=== PATIENT | male | born 1950 | race Caucasian/White ===

== ENCOUNTER 2018-06-07 06:50 | Observation (INO) | payer MEDICARE, OTHER ==
[2018-06-07] VITALS (7 sets, daily range): BP systolic 119–126; BP diastolic 61–71
[~2018-06-07] VITALS: Ht 175.3 cm; Wt 91.7 kg
[~2018-06-07 06:50] MED LIST: CELEBREX100 MG PO; COLCRYS0.6 MG PO; ULORIC80 MG PO
[2018-06-07] MEDS ORDERED: KETOROLAC TROMETHAMINE 30 MG/ML VIAL IV STA (06:53)
[2018-06-07 07:45] LABS: BASOPHILS # (AUTO) 0.1 (0.0-0.1); BASOPHILS % 0.5 % (0.0-1.0); EOSINOPHILS # (AUTO) 0.3 (0.0-0.4); EOSINOPHILS % 2.4 % (0.0-6.0); HEMATOCRIT 38.4 % (38.2-49.6); HEMOGLOBIN 12.6 g/dL (14.0-18.0); LYMPHOCYTES # (AUTO) 1.2 (1.0-3.2); LYMPHOCYTES % 11.7 % (18.0-39.1); MEAN CORPUSCULAR HEMOGLOBIN 33.9 pg (28-32); MEAN CORPUSCULAR HGB CONC 32.8 g/dL (31-35); MEAN CORPUSCULAR VOLUME 103.2 fL (81-99); MONOCYTES # (AUTO) 1.2 (0.2-0.8); MONOCYTES % 11.2 % (4.4-11.3); NEUTROPHILS # (AUTO) 7.6 (2.1-6.9); NEUTROPHILS % 73.8 % (38.7-80.0); PLATELET COUNT 195 x10e3/uL (140-360); RED BLOOD COUNT 3.72 x10e6/uL (4.3-5.7); RED CELL DISTRIBUTION WIDTH 14.1 % (11.7-14.4)
[2018-06-07 07:54] LABS: BILIRUBIN,URINE NEGATIVE (NEGATIVE); CLARITY,URINE CLEAR (CLEAR); COLOR,URINE YELLOW (YELLOW); KETONES,URINE NEGATIVE (NEGATIVE); LEUKOCYTE ESTERASE ,URINE NEGATIVE (NEGATIVE); NITRITE,URINE NEGATIVE (NEGATIVE); PROTEIN,URINE DIPSTICK NEGATIVE (NEGATIVE); URINE UROBILINOGEN 0.2 mg/dL (0.2 - 1)
[2018-06-07 08:00] LABS: RBC,URINE 0-5 /HPF (0-5)
--- NOTE | 2018-06-07 08:06 | Diagnostic Imaging Report ---
EXAM: CT Abdomen and Pelvis WITHOUT contrast INDICATION: Pain COMPARISON: None. TECHNIQUE: Abdomen and Pelvis was scanned utilizing a multidetector helical scanner without the use of IV contrast. Coronal and sagittal reformations were obtained. IV CONTRAST: None COMPLICATIONS: None RADIATION DOSE: Total DLP: 429 mGy*cm Estimated effective dose: (DLP x 0.015 x size factor) mSv CTDIvol has been reviewed. It is below the limits set by the Radiation Protocol Committee (RPC). Appropriate CT dose reduction techniques were utilized. FINDINGS: Abdomen: Lung Bases: Mild atelectasis. Solid Organs: Decreased attenuation of liver suggest steatosis. Nonenhanced images of the adrenals, spleen, and pancreas grossly unremarkable. Numerous bilateral nonobstructing renal calculi, largest right 5 mm largest left 7 mm. There is a 6 mm proximal right ureteral calculus with mild hydronephrosis. Upper GI Tract: No small bowel obstructive changes. Vascularity: Mild aortic vascular calcifications. No aneurysm. Lymph Nodes: Haziness central mesentery with scattered small mesenteric lymph nodes, increased in number, but not by size. Other: None. Pelvis: Bladder: 1 to 2 mm calcification within the dependent portion of the urinary bladder just to the right of midline. Other: None. Colon: No acute colonic findings. Bones: L5 pars defects with grade 1 anterolisthesis L5 on S1. Moderate degenerative changes otherwise noted. IMPRESSION: 1. 6 mm proximal right ureteral calculus with mild right hydronephrosis. Several other bilateral nonobstructing renal calculi present as well as 1 to 2 mm calcification within the urinary bladder consistent with recently passed stone. 2. Haziness central mesentery with scattered small lymph nodes. While findings are commonly seen in the setting of mesenteric adenitis, lymphoma can have similar appearance. [address] abdomen follow-up recommended. Signed by: Dr. Tony Valle MD on 06/07/2018 8:03 AM
[2018-06-07 08:07] LABS: ALBUMIN 3.4 g/dL (3.5-5.0); ALBUMIN/GLOBULIN RATIO 1.1 (0.8-2.0); ANION GAP 13.9 mmol/L (8-16); CALCIUM 8.7 mg/dL (8.4-10.2); CREATININE, SERUM 1.69 mg/dL (0.72-1.25); POTASSIUM 3.9 mmol/L (3.5-5.1)
[2018-06-07] MEDS ORDERED: SODIUM CHLORIDE 0.9% 1000ML 1,000 ML ONE (08:43)
[2018-06-07] MEDS ORDERED: SODIUM CHLORIDE 0.9% 1000ML 1,000 ML IV ONE (08:45)
[2018-06-07] MEDS ORDERED: HYDROMORPHONE 1MG/1ML INJ IV PRN (09:15)
[2018-06-07] MEDS ORDERED: ONDANSETRON HCL INJ 2 MG/ML VIAL IV PRN (09:15)
[2018-06-07] MEDS: SODIUM CHLORIDE 0.9% 1000ML 1,000 ML IV SCH ×2 (09:32→16:21)
[2018-06-07] MEDS: CEFTRIAXONE SOD 1 GM VIAL IV SCH (09:36)
[2018-06-07] MEDS ORDERED: INDOMETHACIN50 MG (10:52)
[2018-06-07] MEDS ORDERED: PREDNISONE10 MG PO (10:52)
--- NOTE | 2018-06-07 12:27 | Consultation ---
DATE OF CONSULTATION: June 07, 2018 UROLOGY CONSULTATION CHIEF UROLOGIC COMPLAINT/REASON FOR CONSULTATION: Kidney stones. HISTORY OF PRESENT ILLNESS: Mr. Kelly is a very pleasant 67-year-old male who was in his normal state of health until acute onset of sharp, severe 10/10 right-sided flank pain. He denied fevers. No chills. Denied nausea. No vomiting. PAST MEDICAL HISTORY: Notable only for severe gout. MEDICATIONS: Please see MAR. ALLERGIES: NKDA. SOCIAL HISTORY: Denied smoking or drinking. FAMILY HISTORY: Denied urologic stones or malignancies. REVIEW OF SYSTEMS: Noncontributory to the problems and as mentioned above for 12-point review of systems. PHYSICAL EXAMINATION GENERAL: A middle-aged male in no acute distress. VITALS: Temperature 96.8, pulse 60, respirations 14, blood pressure 119/68. HEENT: The sclerae are anicteric. NECK: Supple. BACK: With right-sided costovertebral angle tenderness. ABDOMEN: Soft. It is nontender. It is nondistended. No palpable mass. No palpable hernias. No palpable inguinal lymphadenopathy. : Normal male external genitalia. EXTREMITIES: No edema in upper or lower extremities. PSYCH: Alert. Mood appropriate. SKIN: Intact. Normal color. LABORATORY DATA: CT scan revealing bilateral kidney stones, largest on the right, 5 mm and largest stone on the left 7 mm. A 6 x 6 mm proximal right ureteral calculus with hydronephrosis. Urinalysis with 0-5 reds and positive blood. Sodium 141, potassium 3.9, chloride 106, bicarb 25, BUN 25, creatinine 1.69, glucose 108. Hemoglobin 12.9, hematocrit 38.4 and platelet count 195,000, white cell count 10,300. IMPRESSION 1. Bilateral kidney stones. 2. Right ureteral stone. 3. Right-sided hydronephrosis. 4. Right renal colic. 5. Microscopic hematuria. 6. Anemia. 7. Acute renal failure. PLAN: I had a long discussion with the patient about alternatives, risks and benefits. Will place a stent tomorrow. Patient explicitly understands that the stent is a temporary indwelling device and must be removed. Failure to do so could lead to encrustation, infection, inflammation, actual loss of the kidney, and . Job#: [id number] RI cc:MD BROOK JONES DO
[2018-06-07] MEDS ORDERED: PREDNISONE 10 MG TAB PO PRN (12:45)
--- NOTE | 2018-06-07 14:21 | History and Physical ---
CHIEF COMPLAINT: Right flank pain. HISTORY OF PRESENT ILLNESS: This is a 67-year-old white male presents to [facility] emergency room with sudden onset of right flank pain. The patient states he has no history of kidney stone. However, in the emergency room the patient underwent a CT of the abdomen and pelvis without contrast that did reveal a 6 mm proximal right ureteral calculus with mild right hydronephrosis. The CT of the abdomen and pelvis also revealed several other bilateral nonobstructing renal calculi. The patient was found to have a white blood cell count of 10,300 with 73% segmented neutrophils. Also, on admission the patient was found to have a BUN and creatinine of 25 and 1.69 respectively. The patient states that recently he started intravenous Cristexa because of his severe debilitating gout. The patient also states that he takes indomethacin 50 mg once daily on a regular basis for his arthritic gouty pain. REVIEW OF SYSTEMS GENERAL: Weight has been stable. No chills. HEENT: No headache. No vision changes. CARDIOVASCULAR: No chest pain or shortness of breath. GI: Complains of right flank pain, which began early this morning. It is associated with some slight nausea, but no vomiting. No diarrhea. : Does complain of painful urination, but no hematuria. The patient states the pain radiates from his right flank to right scrotal area. NEUROMUSCULAR: The patient complains of intense right flank pain as previously stated. PAST MEDICAL HISTORY: Severe gout. PAST SURGICAL HISTORY 1. Left shoulder surgery twice. 2. Bilateral bunionectomy. 3. Right total knee replacement. FAMILY HISTORY: No family history of gout or kidney stones. ALLERGIES: NO KNOWN DRUG ALLERGIES. HOME MEDICATIONS 1. Colchicine 0.6 mg once daily. 2. Uloric 80 mg daily. 3. Indomethacin 50 mg daily as needed for arthritic pain. 4. Prednisone 10 mg once daily as needed for arthritic pain. PHYSICAL EXAMINATION GENERAL: He is awake, alert and oriented. Very pleasant and cooperative with exam. He looks younger than his stated age. His is at bedside. VITALS: Height is 5 feet 9 inches, weight is 194 pounds. BMI is 28. Blood pressure 119/68, pulse 60, respiratory rate 14, oxygen saturation is 97%, temperature is 96.8. INTEGUMENT: Skin is warm and dry. No pallor of conjunctivae appreciated. HEENT: Anicteric. Moist mucous membranes. NECK: Supple. CARDIOVASCULAR: Distant heart sounds. Regular rate and rhythm. LUNGS: No rales. No rhonchi or wheezing. ABDOMEN: Soft. He does have exquisite right flank tenderness. EXTREMITIES: The patient has significant arthritic deformities of his right metacarpophalangeal joint consistent with gouty arthritis. NEUROLOGIC: Intact. No gross deficits. DIAGNOSES 1. Right nonobstructing ureteral stone with mild hydronephrosis. 2. Acute renal failure. 3. Severe gout. PLAN 1. Will stop all NSAIDs. 2. Gentle intravenous fluids. 3. Follow renal function. 4. Pain control. 5. Consult urology. I spent 40 minutes in the care of this patient. Job#: [id number] ANGEL
--- NOTE | 2018-06-07 14:22 | Discharge Summary ---
KRISTYN MATTHEWS, LENGTH 0:2 KAROL DUVALL MD Job#: [id number] ANGEL
[2018-06-07] MEDS ORDERED: LIDOCAINE HCL 2% LOCAL INJ 5 ML SDV VIAL INJ ONE (18:36)
[2018-06-07] MEDS ORDERED: SEVOFLURANE INHAL SOLN 250 ML PEN BTL ONE (18:36)
[2018-06-07] MEDS ORDERED: ONDANSETRON HCL INJ 2 MG/ML VIAL ONE (18:36)
[2018-06-07] MEDS ORDERED: PROPOFOL IV EMULSION 10 MG/ML 20 ML VIAL ONE (18:36)
[2018-06-07] MEDS ORDERED: DEXAMETHASONE SOD PHOS INJ 4 MG/ML VIAL ONE (18:36)
[2018-06-08] VITALS: BP 134/64
[2018-06-08] MEDS: SODIUM CHLORIDE 0.9% 1000ML 1,000 ML IV SCH (00:20)
[2018-06-08 04:00] VITALS: BP 133/76
[2018-06-08 04:59] LABS: BASOPHILS % 0.3 % (0.0-1.0); EOSINOPHILS # (AUTO) 0.2 (0.0-0.4); EOSINOPHILS % 2.2 % (0.0-6.0); HEMATOCRIT 35.3 % (38.2-49.6); HEMOGLOBIN 11.5 g/dL (14.0-18.0); LYMPHOCYTES # (AUTO) 1.1 (1.0-3.2); LYMPHOCYTES % 14.8 % (18.0-39.1); MEAN CORPUSCULAR HEMOGLOBIN 33.7 pg (28-32); MEAN CORPUSCULAR HGB CONC 32.6 g/dL (31-35); MEAN CORPUSCULAR VOLUME 103.5 fL (81-99); MONOCYTES % 12.9 % (4.4-11.3); NEUTROPHILS # (AUTO) 5.3 (2.1-6.9); NEUTROPHILS % 69.3 % (38.7-80.0); PLATELET COUNT 172 x10e3/uL (140-360); RED BLOOD COUNT 3.41 x10e6/uL (4.3-5.7); RED CELL DISTRIBUTION WIDTH 14.1 % (11.7-14.4)
[2018-06-08 05:14] LABS: ANION GAP 10.4 mmol/L (8-16); BLOOD UREA NITROGEN 21 mg/dL (7-26); BUN/CREATININE RATIO 21 (6-25); CALCIUM 8.2 mg/dL (8.4-10.2); CARBON DIOXIDE 24 mmol/L (22-29); CHLORIDE 111 mmol/L (98-107); CREATININE, SERUM 0.98 mg/dL (0.72-1.25); EST GLOMERULAR FILTRATION RATE > 60 ML/MIN (60-); GLUCOSE 102 mg/dL (74-118); POTASSIUM 4.4 mmol/L (3.5-5.1); SODIUM 141 mmol/L (136-145)
[2018-06-08] MEDS ORDERED: IOPAMIDOL 300MG/ML 50ML INFUS..BTL IV ONE (06:48)
--- NOTE | 2018-06-08 08:15 | Operative Report ---
DATE OF PROCEDURE: June 08, 2018 PREOPERATIVE DIAGNOSES 1. Right hydronephrosis. 2. Right ureteral calculus. 3. Microscopic hematuria. POSTOPERATIVE DIAGNOSES 1. Right hydronephrosis. 2. Right ureteral calculus. 3. Microscopic hematuria. 4. Bladder stone. PROCEDURES 1. Cystourethroscopy with left ureteral catheterization (entire separate procedure for diagnosis of microscopic hematuria). 2. Cystourethroscopy with placement for right indwelling stent (entire separate procedure for right hydronephrosis). 3. Cystourethroscopy with extraction of bladder stone. 4. Supervision of fluoroscopy for stent insertion portion. 5. Interpretation of retrograde pyelography for microscopic hematuria. ANESTHESIA: General. ESTIMATED BLOOD LOSS: Minimal. COMPLICATIONS: None. INDICATIONS: Mr. Bernstein is a very pleasant 67-year-old male, admitted to the hospital with urinary tract infection, as well as acute renal failure and hydronephrosis for the blocked right kidney stone. He and I had a long discussion about alternatives, risks, and benefits including doing nothing. The fact that stents are temporary indwelling device that must be removed and failure to do so could lead to encrustation, infection, inflammation, actual loss of kidney or even . He elected to proceed. PROCEDURE IN DETAIL: After informed consent was obtained, the patient was taken to the operating suite. He was placed on the operating table. Having under general anesthetic, he was placed in dorsal lithotomy position, and sterilely prepped and draped for cystoscopy. A 22.5-Congolese cystoscope was inserted per urethra. A normal urethra was noted. There was trilobar prostatic hypertrophy. Panendoscopy of the bladder revealed [id number] degree trabeculation. There were multiple stones in the floor of the bladder. These were extracted with graspers. Bilateral retrograde pyelogram was performed revealing tortuous ureters. On the right side, there was a proximal ureteral catheter with multiple stones in the kidney. On the left side, there were multiple kidney stones. At this time, a ureteral stent was deployed with a coil in the UPJ and a coil in the bladder on the right. Patient's bladder was drained. He was awakened from anesthesia and transported to the recovery room in excellent condition. SUPERVISION OF FLUOROSCOPY, INTERPRETATION OF RETROGRADE PYELOGRAPHY: I was present throughout the entire procedure and supervised fluoroscopy as there was no radiologist present at any time during the procedure. Attention was turned toward the left and right ureteral orifice, which were catheterized with a 5-Congolese open-ended catheter. A retrograde pyelogram was performed of the left side revealed a 6 x 6-mm proximal ureteral calculus. Multiple kidney stones on the right lower pole, largest approximately 7 and 8 mm. On the left side, multiple kidney stones with the largest being approximately 6 x 6 mm. Job#: [id number] CQ cc:GIOVANNY HINOJOSA DO
[2018-06-08] MEDS ORDERED: COLCHICINE 0.6 MG TAB PO SCH (09:00)
[2018-06-08] MEDS: CEFTRIAXONE SOD 1 GM VIAL IV SCH (09:03)
[2018-06-08 11:29] VITALS: BP 121/60
[2018-06-08] MEDS ORDERED: KETOROLAC TROMETHAMINE 30 MG/ML VIAL IV PRN (14:15)
[2018-06-08] MEDS ORDERED: FENTANYL CITRATE/PF 100MCG/2 ML INJ ONE (14:58)
[2018-06-08] MEDS ORDERED: MIDAZOLAM HCL 2 MG/2 ML VIAL ONE (14:58)
[2018-06-08 15:36] VITALS: BP 136/65
[2018-06-16] MEDS ORDERED: LEVAQUIN500 MG PO (10:02)
[2018-06-16] MEDS ORDERED: TYLENOL WITH C1 EACH PO (10:04)
== END 2018-06-08 16:26 | disposition home or self-care (01) ==
LOC: ER 06:50 → ERHOLD 09:29 → IMCU 10:21
DX: N13.2 Hydronephrosis with renal and ureteral calculous obstruction (principal); N17.9 Acute kidney failure, unspecified; N21.0 Calculus in bladder; M10.9 Gout, unspecified; Z96.651 Presence of right artificial knee joint; M10.041 Idiopathic gout, right hand; R31.29 Other microscopic hematuria; D64.9 Anemia, unspecified
CPT/HCPCS: 36415 ×2; 52310; 52332; 74176; 74420; 80048; 80053; 81001; 85025 ×2; 88300; 99284; C1758; C1874; G0378 ×2; J0696 ×2; J1100; J1170; J1885 ×2; J2001; J2250; J2405; J7030 ×2; Q9967

== ENCOUNTER → 2018-06-17 | Day surgery (SDC) | payer MEDICARE, OTHER ==
[2018-06-16 12:53] LABS: BASOPHILS % 0.5 % (0.0-1.0); EOSINOPHILS # (AUTO) 0.3 (0.0-0.4); EOSINOPHILS % 3.1 % (0.0-6.0); HEMATOCRIT 38.9 % (38.2-49.6); LYMPHOCYTES # (AUTO) 1.4 (1.0-3.2); LYMPHOCYTES % 16.6 % (18.0-39.1); MEAN CORPUSCULAR HEMOGLOBIN 33.9 pg (28-32); MEAN CORPUSCULAR HGB CONC 33.4 g/dL (31-35); MEAN CORPUSCULAR VOLUME 101.6 fL (81-99); MONOCYTES # (AUTO) 1.2 (0.2-0.8); MONOCYTES % 14.1 % (4.4-11.3); NEUTROPHILS # (AUTO) 5.4 (2.1-6.9); NEUTROPHILS % 65.3 % (38.7-80.0); PLATELET COUNT 278 x10e3/uL (140-360); RED BLOOD COUNT 3.83 x10e6/uL (4.3-5.7); RED CELL DISTRIBUTION WIDTH 13.1 % (11.7-14.4)
--- NOTE | 2018-06-16 13:06 | Diagnostic Imaging Report ---
EXAMINATION: CHEST 2 VIEWS INDICATION: Pre-op COMPARISON: None FINDINGS: TUBES and LINES: None. LUNGS: Lungs are well inflated. Lungs are clear. There is no evidence of pneumonia or pulmonary edema. PLEURA: No pleural effusion or pneumothorax. HEART AND MEDIASTINUM: The cardiomediastinal silhouette is unremarkable. There are atherosclerotic calcifications at the aortic arch. BONES AND SOFT TISSUES: No acute osseous lesion. Soft tissues are unremarkable. UPPER ABDOMEN: No free air under the diaphragm. IMPRESSION: No acute radiographic abnormality. Signed by: Dr. Sp Marti MD on 06/16/2018 1:02 PM
[~2018-06-17] MED LIST changes: +DEXAMETHASONE SOD PHOS INJ 4 MG/ML VIAL ONE; +FENTANYL CITRATE/PF 100MCG/2 ML INJ ONE; +GENTAMICIN 120MG/NS 100ML 100 ML ONE; +INDOMETHACIN50 MG; +IOPAMIDOL 300MG/ML 50ML INFUS..BTL IV ONE; +LEVAQUIN500 MG PO; +LIDOCAINE HCL 2% LOCAL INJ 5 ML SDV VIAL INJ ONE; +MIDAZOLAM HCL 2 MG/2 ML VIAL ONE; +ONDANSETRON HCL INJ 2 MG/ML VIAL ONE; +PREDNISONE10 MG PO; +PROPOFOL IV EMULSION 10 MG/ML 20 ML VIAL ONE; +SEVOFLURANE INHAL SOLN 250 ML PEN BTL ONE; +TYLENOL WITH C1 EACH PO
--- NOTE | 2018-06-17 12:48 | Diagnostic Imaging Report ---
Exam: Abdominal film Clinical History: Preop Comparison: CT abdomen and pelvis without contrast 06/07/2018 DISCUSSION: Interval placement of a right internal ureteral stent. The proximal locking loop projects over the expected region of the renal pelvis. The distal locking loop projects over the expected region of the urinary bladder. No calcification is identified along the course of the ureteral stent to correspond to the ureteral calculus seen on 06/07/2018. Multiple bilateral calculi are again noted projecting over the renal shadows, grossly unchanged. Bowel gas pattern is nonobstructive. Regional skeletal structures are intact. IMPRESSION: Interval placement of an appropriately positioned right internal ureteral stent. Bilateral nephrolithiasis. Signed by: Dr. Dev Lopez M.D. on 06/17/2018 12:44 PM
[2018-06-17 14:55] VITALS: BP 156/80
--- NOTE | 2018-06-19 07:57 | Operative Report ---
DATE OF PROCEDURE: June 17, 2018 PREOPERATIVE DIAGNOSES 1. Right ureteral calculus. 2. Right ureteral stent. POSTOPERATIVE DIAGNOSES 1. Right ureteral calculus. 2. Right ureteral stent. PROCEDURES 1. Cystourethroscopy with right ureteral stone manipulation (entirely separate procedure for the right ureteral stone). 2. Staged right-sided shock wave lithotripsy (entirely separate procedure in a staged fashion to rid the patient of right-sided stones. 3. Cystourethroscopy with removal of right indwelling stent (entirely separate procedure for the diagnosis of right ureteral stone). 4. Supervision of fluoroscopy. 5. Interpretation of retrograde pyelography. ANESTHESIA: General. ESTIMATED BLOOD LOSS: Minimal. COMPLICATIONS: None. INDICATIONS: Mr. Kelly is a very pleasant 67-year-old male with a history of right ureteral calculi and stent placement. He and I had a long discussion regarding the alternatives, the risks and benefits including doing nothing, shock wave lithotripsy, ureteroscopy, percutaneous surgery, open surgery. He voiced understanding of the options, the alternatives, the risks and benefits, and elected to proceed. PROCEDURE IN DETAIL: After informed consent was obtained, the patient was taken to the operative suite and placed supine on the operating table and underwent general anesthesia by the anesthesia services. He was placed in dorsal lithotomy position and sterilely prepped and draped in a standard fashion for cystoscopy. A 22.5-Syriac cystoscope was inserted per urethra. A normal urethra was noted. Panendoscopy of the bladder was done, excluding stone. The stent was grasped and guidewire was inserted through the stent. Retrograde pyelogram was performed. The stone was manipulated from the proximal ureter into the renal pelvis. The stone was then localized in the X, Y and Z planes. A total of 3000 shocks were delivered to the stone at a maximum power of 6. The patient tolerated the procedure well and was transported to the recovery room in excellent condition. No untoward effects noted. The safety wire was removed. The bladder was drained. SUPERVISION OF FLUOROSCOPY AND INTERPRETATION OF RETROGRADE PYELOGRAPHY: I was present throughout the entire procedure and I supervised the use of fluoroscopy as no radiologist present at any time during this procedure. Attention was turned towards the right ureteral orifice. It was catheterized and retrograde pyelogram was performed. A previous ureteral calculus proximally had been manipulated in the renal pelvis. Postoperative views did show interval removal of renal calculi as well as ureteral stent. Job#: [id number] GE cc:GIOVANNY HINOJOSA DO
== END | disposition home or self-care (01) ==
LOC: OR 10:30
PROVIDERS: ATTEND Urology
DX: N20.1 Calculus of ureter (principal); Z46.6 Encounter for fitting and adjustment of urinary device; N13.30 Unspecified hydronephrosis; N39.0 Urinary tract infection, site not specified; F41.9 Anxiety disorder, unspecified; Z01.810 Encounter for preprocedural cardiovascular examination; Z01.812 Encounter for preprocedural laboratory examination; Z01.818 Encounter for other preprocedural examination; Z96.651 Presence of right artificial knee joint; Z96.619 Presence of unspecified artificial shoulder joint
CPT/HCPCS: 36415; 50590; 71046; 74018; 85025; 93005; J1100; J1580; J2001; J2250; J2405; Q9967

== ENCOUNTER 2018-11-06 08:58 | Emergency (ER) | payer MEDICARE, OTHER ==
[~2018-11-06] VITALS: Ht 175.3 cm; Wt 91.6 kg
[~2018-11-06 08:58] MED LIST changes: -DEXAMETHASONE SOD PHOS INJ 4 MG/ML VIAL ONE; -FENTANYL CITRATE/PF 100MCG/2 ML INJ ONE; -GENTAMICIN 120MG/NS 100ML 100 ML ONE; -IOPAMIDOL 300MG/ML 50ML INFUS..BTL IV ONE; -LIDOCAINE HCL 2% LOCAL INJ 5 ML SDV VIAL INJ ONE; -MIDAZOLAM HCL 2 MG/2 ML VIAL ONE; -ONDANSETRON HCL INJ 2 MG/ML VIAL ONE; -PROPOFOL IV EMULSION 10 MG/ML 20 ML VIAL ONE; -SEVOFLURANE INHAL SOLN 250 ML PEN BTL ONE
--- OUTSIDE RECORDS SUMMARY | 2018-11-06 09:02 | XMS REPORT | Continuity of Care Document ---
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 Problem 09/25/2018 Micky Horta Encounter for long-term drug use Active Diagnosis 02/25/2018 Micky Horta High risk medication use Active Problem 09/25/2018 Micky Horta Medications Medication Details Route Status Patient Instructions Ordering Provider Order Date Source Colchicine 1 tablet Orally Active 0.6 MG Orally Once a day Horta 09/23/2018 Micky Horta Indomethacin 1 capsule with food or milk Orally Active 25 MG Orally every morning Rashid 09/22/2018 Micky Horta PredniSONE 2-4 tablets as needed Orally Active 5 MG Orally Once a day Horta 08/24/2018 Micky Horta Indomethacin 1 capsule with food or milk Orally Active 25 MG Orally every morning Horta 07/19/2018 Micky Horta Meloxicam 1 tablet Orally Active 7.5 MG Orally bid with food Horta 07/16/2018 Micky Horta Meloxicam 1 tablet Orally Active 7.5 MG Orally bid with food Horta 06/22/2018 Micky Horta Colchicine 1 tablet Orally Active 0.6 MG Orally Once a day Horta 06/22/2018 Micky Horta PredniSONE 2-4 tablets as needed Orally Active 5 MG Orally Once a day Horta 05/29/2018 Micky Horta PredniSONE 2-4 tablets as needed Orally Active 5 MG Orally Once a day Rashid 05/29/2018 Micky Horta PredniSONE 1 tablet Orally Active 10 MG Orally as needed Rashid 05/28/2018 Micky Horta Colchicine 1 tablet Orally Active 0.6 MG Orally Once a day Rashid 05/27/2018 Micky Horta PredniSONE 2 tablets for flares Orally Active 10 MG Orally as needed Horta 05/13/2018 Micky Horta Krystexxa 1 ml Intravenous Active 8 MG/ML Intravenous every 2 weeks Horta 03/23/2018 Micky Horta Colchicine 1 tablet Orally Active 0.6 MG Orally Once a day Rashid 03/23/2018 Micky Horta Indomethacin 1 capsule with food or milk Orally Active 50 MG Orally every morning Rashid 03/23/2018 Micky Horta Uloric 1 tablet Orally Active 80 MG Orally Once a day [place] 02/17/2018 Micky Horta Celecoxib (Celebrex*) 100 Mg Capsule Daily Active [facility] Colchicine (Colcrys) 0.6 Mg Tablet Daily Active [facility] Febuxostat (Uloric) 80 Mg Tablet Daily Active [facility] Indomethacin 50 Mg Capsule Daily Active [facility] Prednisone 10 Mg Tab As Needed Active [facility] Acetaminophen 1 capsule Orally Active 650 MG Orally once a day Rashid Micky Alonsoer Uloric 1 tablet Orally Active 80 MG Orally Once a day Rashid Micky Horta PredniSONE 2 tablets for 4 daysm then 1 tablet as needed until flare resolves Orally Active 10 MG Orally as needed Rashid Micky Horta Multivitamin Men as directed Orally Active - Orally Rashid Micky Horta Indomethacin 1 capsule with food or milk Orally Active 25 MG Orally every morning Rashid Micky Horta Colchicine 1 tablet Orally Active 0.6 MG Orally Once a day [place] Micky Horta Krystexxa 1 ml Intravenous Active 8 MG/ML Intravenous every 2 weeks [place] Micky Alonsoer Indomethacin 1 capsule with food or milk Orally Active 50 MG Orally every morning [place] Micky Horta Allergies, Adverse Reactions, Alerts Substance Category Reaction Severity Reaction type Status Date Reported Comments Source Colchicine Adverse Reaction stomach upset Adverse Reaction Active 06/24/2018 Micky Horta Immunizations Immunization Date Given Site Status Last Updated Comments Source Results Order Name Results Value Reference Range Date Interpretation Comments Source Automated blood basophil count (count/volume) Automated blood basophil count (count/volume) 0.0 0.0 - 0.1 06/08/2018 [facility] Automated blood basophil count as percentage of total leukocytes Automated blood basophil count as percentage of total leukocytes 0.3 0.0 - 1.0 06/08/2018 [facility] Automated blood eosinophil count Automated blood eosinophil count 0.2 0.0 - 0.4 06/08/2018 [facility] Automated blood eosinophil count as percentage of total leukocytes Automated blood eosinophil count as percentage of total leukocytes 2.2 0.0 - 6.0 06/08/2018 [facility] Automated blood hematocrit (volume fraction) Automated blood hematocrit (volume fraction) 35.3 38.2 - 49.6 06/08/2018 [facility] Automated blood lymphocyte count as percentage ot total leukocytes Automated blood lymphocyte count as percentage ot total leukocytes 14.8 18.0 - 39.1 06/08/2018 [facility] Automated blood monocyte count as percentage of total leukocytes Automated blood monocyte count as percentage of total leukocytes 12.9 4.4 - 11.3 06/08/2018 [facility] Automated blood neutrophil count Automated blood neutrophil count 5.3 2.1 - 6.9 06/08/2018 [facility] Automated blood platelet count (count/volume) Automated blood platelet count (count/volume) 172 140 - 360 06/08/2018 [facility] Automated blood segmented neutrophil count as percentage of total leukocytes Automated blood segmented neutrophil count as percentage of total leukocytes 69.3 38.7 - 80.0 06/08/2018 [facility] Automated erythrocyte mean corpuscular hemoglobin (mass per erythrocyte) Automated erythrocyte mean corpuscular hemoglobin (mass per erythrocyte) 33.7 28 - 32 06/08/2018 [facility] Automated erythrocyte mean corpuscular hemoglobin concentration measurement (mass/volume) Automated erythrocyte mean corpuscular hemoglobin concentration measurement (mass/volume) 32.6 31 - 35 06/08/2018 [facility] Automated erythrocyte mean corpuscular volume Automated erythrocyte mean corpuscular volume 103.5 81 - 99 06/08/2018 [facility] Blood erythrocytes automated count (number/volume) Blood erythrocytes automated count (number/volume) 3.41 4.3 - 5.7 06/08/2018 [facility] Blood hemoglobin measurement (moles/volume) Blood hemoglobin measurement (moles/volume) 11.5 14.0 - 18.0 06/08/2018 [facility] Blood leukocytes automated count (number/volume) Blood leukocytes automated count (number/volume) 7.69 4.8 - 10.8 06/08/2018 [facility] Blood lymphocytes count (number/volume) Blood lymphocytes count (number/volume) 1.1 1.0 - 3.2 06/08/2018 [facility] Blood monocytes automated count (number/volume) Blood monocytes automated count (number/volume) 1.0 0.2 - 0.8 06/08/2018 [facility] Estimated glomerular filtration rate (GFR) determination Estimated glomerular filtration rate (GFR) determination null 60 06/08/2018 [facility] Glucose measurement Glucose measurement 102 74 - 118 06/08/2018 [facility] Serum or plasma anion gap Serum or plasma anion gap 10.4 8 - 16 06/08/2018 [facility] Serum or plasma calcium measurement (mass/volume) Serum or plasma calcium measurement (mass/volume) 8.2 8.4 - 10.2 06/08/2018 [facility] Serum or plasma carbon dioxide, total measurement (moles/volume) Serum or plasma carbon dioxide, total measurement (moles/volume) 24 22 - 29 06/08/2018 [facility] Serum or plasma chloride measurement (moles/volume) Serum or plasma chloride measurement (moles/volume) 111 98 - 107 06/08/2018 [facility] Serum or plasma creatinine measurement (mass/volume) Serum or plasma creatinine measurement (mass/volume) 0.98 0.72 - 1.25 06/08/2018 [facility] Serum or plasma potassium measurement (moles/volume) Serum or plasma potassium measurement (moles/volume) 4.4 3.5 - 5.1 06/08/2018 [facility] Serum or plasma sodium measurement (moles/volume) Serum or plasma sodium measurement (moles/volume) 141 136 - 145 06/08/2018 [facility] Serum or plasma urea nitrogen measurement (mass/volume) Serum or plasma urea nitrogen measurement (mass/volume) 21 7 - 26 06/08/2018 [facility] Serum or plasma urea nitrogen/creatinine mass ratio Serum or plasma urea nitrogen/creatinine mass ratio 21 6 - 25 06/08/2018 [facility] Red Cell Distribution Width 14.1 11.7 - 14.4 06/08/2018 [facility] IM GRANULOCYTES % 0.5 0.0 - 1.0 06/08/2018 [facility] Absolute Immature Granulocyte (auto 0.04 0 - 0.1 06/08/2018 [facility] Plasma globulin measurement (mass/volume) Plasma globulin measurement (mass/volume) 3.1 2.3 - 3.5 06/07/2018 [facility] Serum or plasma alanine aminotransferase measurement (enzymatic activity/volume) Serum or plasma alanine aminotransferase measurement (enzymatic activity/volume) 19 0 - 55 06/07/2018 [facility] Serum or plasma albumin measurement (mass/volume) Serum or plasma albumin measurement (mass/volume) 3.4 3.5 - 5.0 06/07/2018 [facility] Serum or plasma albumin/globulin mass ratio Serum or plasma albumin/globulin mass ratio 1.1 0.8 - 2.0 06/07/2018 [facility] Serum or plasma alkaline phosphatase measurement (enzymatic activity/volume) Serum or plasma alkaline phosphatase measurement (enzymatic activity/volume) 62 40 - 150 06/07/2018 [facility] Serum or plasma protein measurement (mass/volume) Serum or plasma protein measurement (mass/volume) 6.5 6.5 - 8.1 06/07/2018 [facility] Serum or plasma total bilirubin measurement (mass/volume) Serum or plasma total bilirubin measurement (mass/volume) 0.9 0.2 - 1.2 06/07/2018 [facility] Aspartate Amino Transf (AST/SGOT) 17 5 - 34 06/07/2018 [facility] Automated urine sediment leukocyte count by microscopy (number/high power field) Automated urine sediment leukocyte count by microscopy (number/high power field) NONE 0 - 5 06/07/2018 [facility] Bacteria detection in urine sediment by light microscopy Bacteria detection in urine sediment by light microscopy NONE NONE 06/07/2018 [facility] Epithelial cells detection in urine sediment by light microscopy Epithelial cells detection in urine sediment by light microscopy NONE NONE 06/07/2018 [facility] Erythrocytes detection in urine sediment by light microscopy Erythrocytes detection in urine sediment by light microscopy null 0 - 5 06/07/2018 [facility] Specific gravity of Urine by Test strip Specific gravity of Urine by Test strip 1.025 1.010 - 1.025 06/07/2018 [facility] Urine clarity Urine clarity CLEAR CLEAR 06/07/2018 [facility] Urine color determination Urine color determination YELLOW YELLOW 06/07/2018 [facility] Urine erythrocytes detection Urine erythrocytes detection NEGATIVE NEGATIVE 06/07/2018 [facility] Urine glucose detection Urine glucose detection NEGATIVE NEGATIVE 06/07/2018 [facility] Urine ketones detection by automated test strip Urine ketones detection by automated test strip NEGATIVE NEGATIVE 06/07/2018 [facility] Urine leukocyte esterase detection by dipstick Urine leukocyte esterase detection by dipstick NEGATIVE NEGATIVE 06/07/2018 [facility] Urine nitrite detection Urine nitrite detection NEGATIVE NEGATIVE 06/07/2018 [facility] Urine pH measurement by automated test strip Urine pH measurement by automated test strip 6 5 - 7 06/07/2018 [facility] Urine protein measurement by test strip (mass/volume) Urine protein measurement by test strip (mass/volume) NEGATIVE NEGATIVE 06/07/2018 [facility] Urine total bilirubin measurement (mass/volume) Urine total bilirubin measurement (mass/volume) NEGATIVE NEGATIVE 06/07/2018 [facility] Urine urobilinogen measurement by test strip (mass/volume) Urine urobilinogen measurement by test strip (mass/volume) 0.2 0.2 - 1 06/07/2018 [facility] Vital Signs Vital Sign Value Date Comments Source Weight 186.4 06/24/2018 Micky Horta Height 68 06/24/2018 Micky Horta Temperature Oral (F) 97.6 F 06/24/2018 Micky Horta Heart Rate 74 06/24/2018 Micky Horta Diastolic (mm Hg) 64 06/24/2018 Micky Horta Systolic (mm Hg) 112 06/24/2018 Micky Horta Weight 194.6 05/13/2018 Micky Horta Height 68 05/13/2018 Micky Horta Temperature Oral (F) 97.6 F 05/13/2018 Micky Horta Heart Rate 70 05/13/2018 Micky Horta Diastolic (mm Hg) 65 05/13/2018 Micky Horta Systolic (mm Hg) 115 05/13/2018 Micky Horta Weight 192.8 03/23/2018 Micky Horta Height 68 03/23/2018 Micky Horta Temperature Oral (F) 97.0 F 03/23/2018 Micky Horta Heart Rate 60 03/23/2018 Micky Horta Diastolic (mm Hg) 78 03/23/2018 Micky Horta Systolic (mm Hg) 120 03/23/2018 Micky Horta Weight 191 01/28/2018 Micky Horta Height 68 01/28/2018 Micky Horta Temperature Oral (F) 98.8 F 01/28/2018 Micky Horta Heart Rate 73 01/28/2018 Micky Horta Diastolic (mm Hg) 60 01/28/2018 Micky Horta Systolic (mm Hg) 118 01/28/2018 Micky Horta Weight 191 01/22/2018 Micky Horta Height 68 01/22/2018 Micky Horta Temperature Oral (F) 97.4 F 01/22/2018 Micky Horta Heart Rate 76 01/22/2018 Micky Horta Diastolic (mm Hg) 78 01/22/2018 Micky Horta Systolic (mm Hg) 120 01/22/2018 Micky Horta Weight 190.1 12/29/2017 Micky Horta Height 70 12/29/2017 Micky Horta Temperature Oral (F) 97.7 F 12/29/2017 Micky Horta Heart Rate 80 12/29/2017 Micky Horta Diastolic (mm Hg) 66 12/29/2017 Micky Horta Systolic (mm Hg) 118 12/29/2017 Micky Horta Encounters Location Location Details Encounter Type Encounter Number Reason For Visit Attending Provider ADM Date DC Date Status Source Discharged Inpatient (obs) [id number] ZOE PEARSON MD 06/07/2018 06/08/2018 [facility] Procedures Procedure Code Date Perfomer Comments Source Cystoscopy with retrograde pyelography [id number] 06/08/[address] [facility] CT of abdomen and pelvis without contrast [id number] 06/07/2018 BRAYAN [facility]
--- OUTSIDE RECORDS SUMMARY | 2018-11-06 09:02 | XMS REPORT | Clinical Summary ---
Author Author [facility] Address Unknown Phone Unavailable Care Team Providers Care Freight Rate Specialist Name Role Phone Hawa Velazquez MD PCP Allergies Comments Active Allergy Reactions Severity Noted Date Hiccups Hydrocodone Other (See Low 06/23/2017 Comments) Medications End Date Status Medication Sig Dispensed Refills Start Date Active predniSONE (DELTASONE) 10 TAKE 1 TABLET 1 03/19/201 MG tablet BY MOUTH 6 DAILY X 5 DAYS THEN 1/2 TABLET BY MOUTH EVERY DAY FOR 5 DAYS AND NEEDED Active TURMERIC (CURCUMIN MISC) 1 tablet 0 daily. Active multivitamin (THERAGRAN) Take 1 tablet 0 tablet by mouth daily. Active ascorbic acid, vitamin C, Take 500 mg 0 (VITAMIN C) 500 MG tablet by mouth daily. Active indomethacin (INDOCIN) 25 Take 25 mg by 0 MG capsule mouth daily. Active NON FORMULARY WOBENZYM 0 Active acetaminophen (TYLENOL) Take 500 mg 0 500 MG tablet by mouth every 6 (six) hours as needed for mild pain. Active Problems Problem Noted Date Muscle atrophy of lower extremity 12/07/2017 Nontraumatic rupture of quadriceps tendon 05/03/2017 Status post total right knee replacement using cement 02/16/2017 Gout 01/08/2017 Primary osteoarthritis of right knee 01/06/2017 Olecranon bursitis, left elbow 01/05/2017 Hip stiffness 06/25/2016 Genu varum of both lower extremities 06/05/2016 Knee stiff 06/05/2016 Knee stiffness 06/05/2016 Knee crepitus 06/05/2016 Primary osteoarthritis of both knees 05/24/2016 Acute idiopathic gout 05/24/2016 Bunion of great toe 05/06/2016 Encounters Care Team Description Date Type Specialty Jessica Hill MA 11/26/2017 Telephone Ortho Sports Medicine after 11/05/2017 Family History Medical History Relation Name Comments Hypertension Sister Cancer Sister Relation Name Status Comments Sister Sister Social History Date Tobacco Use Types Packs/Day Years Used Never Smoker Alcohol Use Drinks/Week oz/Week Comments No Sex Assigned at Date Recorded Not on file Industry Job Start Date Occupation Not on file Not on file Not on file Travel End Travel History Travel Start No recent travel history available. Last Filed Vital Signs Not on file Plan of Treatment Health Maintenance Due Date Last Done Comments COLON CANCER SCREENING 2000 SHINGLES VACCINES (1 of 2000 2) PNEUMOCOCCAL 2015 POLYSACCHARIDE VACCINE AGE 65 AND OVER PNEUMOCOCCAL-13 2015 INFLUENZA VACCINE 04/29/2018 Implants Device Identifier Shelf Expiration Date Model / Serial / Lot Implanted Type Area Manufactur er 11/26/2018 [id number] / [id number] / [id number] Matrix Tiss Graftjacket 4x7cm Human Right: Knee DICKINSON Regnrtv [facility] - [id number] - Tissue MEDICAL [id number] Implants TECHNOLOGY Implanted: Qty: 1 on 06/23/2017 by INC Law Dubois MD 01/23/2022 [id number] / [id number] / [id number] Tissue Matrix Placental Liquid Human Right: Knee Cryomatrix Size 1.0cc - Tissue [id number] - [id number] Implants Implanted: Qty: 1 on 06/23/2017 by Law Dubois MD 08/28/2021 [id number] / [id number] / [id number] Attune Medial Dome Pat 38mm - IPM Right: Knee DEPUY [id number] IMPLANT ORTHOPAEDI Implanted: 01/06/2017 (Quantity not [employer] on file) 10/29/2026 1506 10 008 / [id number] / [id number] Attune Rp Tib Base Sz 8 Olu - IPM Right: Knee DEPUY [id number] IMPLANT ORTHOPAEDI Implanted: 01/06/2017 (Quantity not [employer] on file) 05/29/2025 [id number] / [id number] / [id number] Attune Fb Knee Femur Attune Ps Fem IPM Right: Knee DEPUY Rt Sz 9 Olu - [id number] IMPLANT ORTHOPAEDI Implanted: 01/06/2017 (Quantity not [employer] on file) 02/26/2019 [id number] / [id number] / [id number] Attune Ps Rp Insrt Sz 9 10mm - IPM Right: Knee DEPUY [id number] IMPLANT ORTHOPAEDI Implanted: 01/06/2017 (Quantity not [employer] on file) 05/29/2018 [id number] / [id number] / [id number] Cement Bone Gm 40gr Smartset Gmv - Surgical Right: Knee DEPUY [id number] Bone ORTHO Implanted: 01/06/2017 (Quantity not Cement on file) 05/29/2018 [id number] / [id number] / [id number] Cement Bone Gm 40gr Smartset Gmv - Surgical Right: Knee DEPUY [id number] Bone ORTHO Implanted: 01/06/2017 (Quantity not Cement on file) Results Not on fileafter 11/05/2017 Insurance Payer Benefit Subscriber ID Type Phone Address Plan / Group MEDICARE MEDICARE xxxxxxxxxx Medicare [place], [place] PART A AND B CIGNA CIGNA xxxxxxxxxxx HMO HMO/POS Advance Directives Patient has advance care planning documents, and code status on file. For more i nformation, please contact: Juan Restrepo [address] [place] [address] Date Inactivated Comments Code Status Date Activated 01/08/2017 6:17 PM Full Code 01/06/2017 8:07 PM Code Status decision reached by: Patient
--- OUTSIDE RECORDS SUMMARY | 2018-11-06 09:02 | XMS REPORT ---
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
--- OUTSIDE RECORDS SUMMARY | 2018-11-06 09:02 | XMS REPORT ---
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
--- OUTSIDE RECORDS SUMMARY | 2018-11-06 09:03 | XMS REPORT ---
Author Teddy Amos Organization [employer] Address Unknown Phone Unavailable Care Team Providers Care Heating Worker Name Role Phone Teddy Horta CP Unavailable [...]
--- OUTSIDE RECORDS SUMMARY | 2018-11-06 09:03 | XMS REPORT ---
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
--- OUTSIDE RECORDS SUMMARY | 2018-11-06 09:03 | XMS REPORT ---
Author Author Sofya Rashid [facility] [employer] Address Unknown Phone Unavailable Care Team Providers Care Brasswind Instrument Repairer Name Role Phone Sofya Rashid Unavailable Allergies No Known Allergies Problems Problem [...]
--- OUTSIDE RECORDS SUMMARY | 2018-11-06 09:03 | XMS REPORT ---
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 Problem High risk medication use Z79.899 Active Assessment 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 Assessment High risk medication use Z79.899 Active Medications Medication Code System Code Instructions Start Date End Date Status Dosage Colchicine [facility] 83160558118 0.6 MG Orally Once a day May 27, 2018 Sep 22, 2018 Active 1 tablet PredniSONE ND 98442550713 5 MG Orally Once a day May 29, 2018 Active 2- 4 tablets as needed Krystexxa [facility] 22800370924 8 MG/ML Intravenous every 2 weeks Active 1 ml Acetaminophen ND 55377264117 650 MG Orally once a day Active 1 capsule Indomethacin ND 53894494568 25 MG Orally every morning Sep 22, 2018 Active 1 capsule with food or milk Multivitamin Men ND 70502117949 - Orally Active as directed Vital Signs Date/Time: Jun 24, 2018 BMI 28.34 Index Weight 186.4 lbs Height 68 in Temperature 97.6 F Cardiac Monitoring Heart Rate 74 /min Blood Pressure Diastolic 64 mm Hg Blood Pressure Systolic 112 mm Hg Results No Known Results Summary Purpose [employer] Submission
--- OUTSIDE RECORDS SUMMARY | 2018-11-06 09:03 | XMS REPORT ---
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
--- OUTSIDE RECORDS SUMMARY | 2018-11-06 09:03 | XMS REPORT ---
Author Author Teddy Horta Organization [employer] Address Unknown Phone Unavailable Care Team Providers Care Nursery Rn Name Role Phone Teddy Horta CP Unavailable [...]
--- OUTSIDE RECORDS SUMMARY | 2018-11-06 09:03 | XMS REPORT ---
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
[2018-11-06] MEDS ORDERED: ONDANSETRON HCL INJ 2MG/ML 2ML 2 MG/ML VIAL IV STA (09:10)
[2018-11-06] MEDS ORDERED: SODIUM CHLORIDE 0.9% 1000ML 1,000 ML IV STA (09:10)
[2018-11-06] MEDS ORDERED: KETOROLAC TROMETHAMINE 30 MG/ML VIAL IV STA (09:10)
[2018-11-06] MEDS ORDERED: MORPHINE SULFATE 5 MG/ML VIAL IV ONE (09:15)
[2018-11-06] MEDS ORDERED: MORPHINE SULFATE INJ 4 MG/ML INJ 1ML IV NR (09:30)
[2018-11-06 09:34] LABS: BASOPHILS % 0.6 % (0.0-1.0); EOSINOPHILS # (AUTO) 0.2 (0.0-0.4); HEMATOCRIT 44.3 % (38.2-49.6); HEMOGLOBIN 14.7 g/dL (14.0-18.0); LYMPHOCYTES % 14.9 % (18.0-39.1); MEAN CORPUSCULAR HEMOGLOBIN 32.8 pg (28-32); MEAN CORPUSCULAR HGB CONC 33.2 g/dL (31-35); MEAN CORPUSCULAR VOLUME 98.9 fL (81-99); MONOCYTES # (AUTO) 0.6 (0.2-0.8); NEUTROPHILS % 72.1 % (38.7-80.0); PLATELET COUNT 220 x10e3/uL (140-360); RED BLOOD COUNT 4.48 x10e6/uL (4.3-5.7); RED CELL DISTRIBUTION WIDTH 13.7 % (11.7-14.4)
[2018-11-06 09:40] LABS: INR 0.87; PROTHROMBIN TIME 12.7 seconds (11.9-14.5)
[2018-11-06 09:41] LABS: PARTIAL THROMBOPLASTIN TIME 26.7 seconds (23.8-35.5)
[2018-11-06 09:49] LABS: BILIRUBIN,URINE NEGATIVE (NEGATIVE); CLARITY,URINE SL CLOUDY (CLEAR); COLOR,URINE YELLOW (YELLOW); KETONES,URINE NEGATIVE (NEGATIVE); LEUKOCYTE ESTERASE ,URINE NEGATIVE (NEGATIVE); NITRITE,URINE NEGATIVE (NEGATIVE); PROTEIN,URINE DIPSTICK NEGATIVE (NEGATIVE); URINE UROBILINOGEN 0.2 mg/dL (0.2 - 1)
[2018-11-06 09:50] LABS: ALBUMIN 3.7 g/dL (3.5-5.0); ALBUMIN/GLOBULIN RATIO 1.2 (0.8-2.0); ANION GAP 14.1 mmol/L (8-16); CALCIUM 8.8 mg/dL (8.4-10.2); CREATININE, SERUM 1.28 mg/dL (0.72-1.25); MAGNESIUM 2.2 MG/DL (1.3-2.1); POTASSIUM 4.1 mmol/L (3.5-5.1)
[2018-11-06 09:57] LABS: CREATINE KINASE MB 4.3 ng/mL (0-5.0)
[2018-11-06] MEDS ORDERED: HYDROMORPHONE 2MG/ML 2 MG/ML ML IV ONE (10:00)
[2018-11-06 10:10] LABS: EPITHELIAL CELLS,URINE RARE /LPF
--- NOTE | 2018-11-06 10:35 | Diagnostic Imaging Report ---
EXAM: CT Abdomen and Pelvis WITHOUT contrast INDICATION: Renal stone protocol. COMPARISON: None. TECHNIQUE: Abdomen and pelvis were scanned utilizing a multidetector helical scanner from the lung base to the pubic symphysis without administration of IV contrast. Absence of intravenous contrast decreases sensitivity for detection of focal lesions and vascular pathology. Coronal and sagittal reformations were obtained. Renal stone protocol was performed. Dose modulation, iterative reconstruction, and/or weight based adjustment of the mA/kV was utilized to reduce the radiation dose to as low as reasonably achievable. RADIATION DOSE: Total DLP: 437.3 mGy*cm COMPLICATIONS: None FINDINGS: LINES and TUBES: None. LOWER THORAX: Unremarkable HEPATOBILIARY: Mild diffuse fatty liver. No focal hepatic lesions. No biliary ductal dilation. GALLBLADDER: No radio-opaque stones or sludge. No wall thickening. SPLEEN: No splenomegaly. PANCREAS: No focal masses or ductal dilatation. ADRENALS: No adrenal nodules KIDNEYS/URETERS: There is a 4 mm stone within the bladder, near the left UVJ with mild left hydronephrosis and hydroureter. Previously noted 6 mm proximal right ureteral stone is no longer present. Interval resolution of right-sided mild hydronephrosis. There are bilateral non-obstructing renal stones. There is a 4 mm right mid pole renal stone and additional 3 mm right upper/mid pole stones. Punctate 1 mm right lower pole renal stones. There is a confluent 6 mm stone within the left upper pole and 6 mm stone in the left mid pole. Additional 3 to 5 mm left lower pole renal stones. GI TRACT: No abnormal distention, wall thickening, or evidence of bowel obstruction. Appendix is normal. PELVIC ORGANS/BLADDER: Unremarkable. LYMPH NODES: No lymphadenopathy. VESSELS: There are scattered atherosclerotic calcifications in the aorta and branch vessels. PERITONEUM / RETROPERITONEUM: No free air or fluid. Unchanged mild haziness of the central mesentery with scattered small nonenlarged mesenteric lymph nodes. BONES/SOFT TISSUES: No acute radiographic abnormality. L5 pars defects with grade 1 anterolisthesis of L5 on S1. Moderate degenerative changes of the lumbar spine. IMPRESSION: A 4 mm stone in the bladder, near the left UVJ with mild left hydronephrosis and hydroureter, suggestive of recently passed ureteral stone. Additional bilateral nonobstructing renal stones, measuring up to 6 mm on the left and 4 mm on the right. Similar appearance of haziness in the central mesentery with scattered small mesenteric lymph nodes compared to CT on 06/07/2018. Findings likely represent that of mesenteric adenitis, although lymphoma can have a similar appearance. A follow-up contrast-enhanced CT in 6 months is suggested for further evaluation. Signed by: Dr. Sp Marti MD on 11/06/2018 10:32 AM
--- NOTE | 2018-11-06 10:49 | Diagnostic Imaging Report ---
Examination: Single AP view of the chest. COMPARISON: None. INDICATION: Left flank pain DISCUSSION: Lines/tubes: None. Lungs: The lungs are well inflated and clear. No pneumonia or pulmonary edema. Pleura: No pleural effusion or pneumothorax. Heart and mediastinum: The heart and the mediastinum are unremarkable. Bones and soft tissues: No acute bony abnormalities. Degenerative changes in the thoracic spine. IMPRESSION: 1. No acute cardiopulmonary abnormalities. Signed by: Dr. Domenic Young M.D. on 11/06/2018 10:45 AM
[2018-11-06 13:12] VITALS: BP 144/56
== END 2018-11-06 13:25 | disposition home or self-care (01) ==
LOC: ER 08:58
DX: M54.5 Low back pain (principal); R10.9 Unspecified abdominal pain; R11.0 Nausea; N20.1 Calculus of ureter; M10.9 Gout, unspecified
CPT/HCPCS: 36415; 71045; 74176; 80053; 81001; 82550; 82553; 83735; 84484; 85025; 85610; 85730; 87086; 99284; J1170; J1885; J2405; J7030

== ENCOUNTER 2018-11-07 15:58 | Emergency (ER) | payer MEDICARE, OTHER ==
[~2018-11-07] VITALS: Ht 175.3 cm; Wt 91.6 kg
--- OUTSIDE RECORDS SUMMARY | 2018-11-07 16:00 | XMS REPORT | Clinical Summary ---
Author Author Martinez Jainism [facility] Jainism Address Unknown Phone Unavailable Care Team Providers Care Manager Sales And Marketing Name Role Phone Hawa Velazquez MD PCP [...] MA 11/26/2017 Telephone Ortho Sports Medicine after 11/06/2017 Family History Medical History Relation Name Comments [...] Lot Implanted Type Area Manufactur er 11/26/2018 [id number] / [id number] / [id number] Matrix Tiss Graftjacket 4x7cm Human Right: Knee DICKINSON Regnrtv [facility] [place] - [id number] - Tissue MEDICAL [id number] Implants TECHNOLOGY Implanted: Qty: 1 on 06/23/2017 by INC Law Dubois MD 01/23/2022 AM100 / [id number] / [id number] Tissue Matrix Placental Liquid Human Right: Knee Cryomatrix Size 1.0cc - Tissue [id number]* - [id number] Implants Implanted: Qty: 1 on 06/23/2017 by Law Dubois MD 08/28/2021 [id number] / [id number] / [id number] Attune Medial Dome Pat 38mm - IPM Right: Knee DEPUY [id number] IMPLANT ORTHOPAEDI Implanted: 01/06/2017 (Quantity not [employer] on file) 10/29/2026 1506 10 008 / [id number] / [id number] Attune Rp Tib Base Sz 8 Olu - IPM Right: Knee DEPUY [id number] IMPLANT ORTHOPAEDI Implanted: 01/06/2017 (Quantity not [employer] on file) 05/29/2025 [id number] / [id number] / [id number] Attune Fb Knee Femur Attune Ps Fem IPM Right: Knee DEPUY Rt Sz 9 Olu - [id number] IMPLANT ORTHOPAEDI Implanted: 01/06/2017 (Quantity not [employer] on file) 02/26/2019 [id number] / [id number] / [id number] Attune Ps Rp Insrt Sz 9 10mm - IPM Right: Knee DEPUY [id number] IMPLANT ORTHOPAEDI Implanted: 01/06/2017 (Quantity not [employer] on file) 05/29/2018 [id number] / [id number] / [id number] Cement Bone Gm 40gr Smartset Gmv - Surgical Right: Knee DEPUY [id number] Bone ORTHO Implanted: 01/06/2017 (Quantity not Cement on file) 05/29/2018 [id number] / [id number] / [id number] Cement Bone Gm 40gr Smartset Gmv - Surgical Right: Knee DEPUY [id number] Bone ORTHO Implanted: 01/06/2017 (Quantity not Cement on file) Results Not on fileafter 11/06/2017 Insurance Payer Benefit Subscriber ID Type Phone Address Plan / Group MEDICARE MEDICARE xxxxxxxxxx Medicare [place] PART A AND B CIGNA CIGNA xxxxxxxxxxx HMO HMO/POS Advance Directives Patient has advance care planning documents, and code status on file. For more i nformation, please contact: Juan Restrepo [address] [place] [address] Date Inactivated Comments Code Status Date Activated 01/08/2017 6:17 PM Full Code 01/06/2017 8:07 PM Code Status decision reached by: Patient
[2018-11-07] MEDS ORDERED: KETOROLAC TROMETHAMINE 30 MG/ML VIAL IV NR (16:30)
--- NOTE | 2018-11-07 16:47 | NUR ---
TORADOL 30MG IV GIVEN AND PT HAS TOLERATED WELL
[2018-11-07] MEDS ORDERED: SODIUM CHLORIDE 0.9% 1000ML 1,000 ML IV STA (17:10)
--- NOTE | 2018-11-07 17:33 | NUR ---
IVF BOLUS INFUSING WITH NO PROBLEM. PT. DENIES PAIN AT THIS TIME
--- NOTE | 2018-11-07 18:16 | NUR ---
PT VOIDED 200CC OF CLEAR, YELLOW URINE; NO EVIDENCE OF STONE P STRAINING URINE
== END 2018-11-07 19:25 | disposition home or self-care (01) ==
LOC: ER 15:58
DX: R10.32 Left lower quadrant pain (principal); R11.2 Nausea with vomiting, unspecified; N20.1 Calculus of ureter; M10.9 Gout, unspecified
CPT/HCPCS: 99284; J1885; J7030

== ENCOUNTER 2019-03-06 16:07 | Emergency (ER) | payer MEDICARE, OTHER ==
[~2019-03-06] VITALS: Ht 175.3 cm; Wt 91.6 kg
--- OUTSIDE RECORDS SUMMARY | 2019-03-06 16:10 | XMS REPORT | Clinical Summary ---
Author Author Martinez [employer] [facility] Address Unknown Phone Unavailable Care Team Providers Care Associate School Psychologist Name Role Phone Hawa Velazquez MD PCP [...] gout 05/24/2016 Bunion of great toe 05/06/2016 Family History Medical History Relation Name Comments [...] Comments COLON CANCER SCREENING 2000 SHINGLES VACCINES (#1) 2000 65+ PNEUMOCOCCAL VACCINE 2015 (1 of 2 - PCV13) INFLUENZA VACCINE 04/29/2019 Implants Device Identifier Shelf Expiration Date Model / Serial / Lot Implanted Type Area Manufactur er 11/26/2018 [id number] / [id number] / [id number] Matrix Tiss Graftjacket 4x7cm Human Right: Knee [facility] [id number] - Tissue MEDICAL [id number] Implants TECHNOLOGY Implanted: Qty: 1 on 06/23/2017 by INC Law Dubois MD 01/23/2022 AM100 / [id number] / [id number] Tissue Matrix Placental Liquid Human Right: Knee Cryomatrix Size 1.0cc - Tissue [id number]* - [id number] Implants Implanted: Qty: 1 on 06/23/2017 by Law Dubois MD 08/28/2021 [id number] / [id number] / [id number] Attune Medial Dome Pat 38mm - IPM Right: Knee DEPUY [id number] IMPLANT ORTHOPAEDI Implanted: 01/06/2017 (Quantity not [employer] on file) 10/29/2026 1506 10 008 / [id number] / [id number] Attune Rp Tib Base Sz 8 Olu - IPM Right: Knee DEPUY [id number] IMPLANT ORTHOPAEDI Implanted: 01/06/2017 (Quantity not [employer] on file) 05/29/2025 [id number] / [id number] / [id number] Attune Fb Knee Femur Attune Ps Fem IPM Right: Knee DEPUY Rt Sz 9 Olu - [id number] IMPLANT ORTHOPAEDI Implanted: 01/06/2017 (Quantity not [employer] on file) 02/26/2019 [id number] / [id number] / [id number] Attune Ps Rp Insrt Sz 9 10mm - IPM Right: Knee DEPUY [id number] IMPLANT ORTHOPAEDI Implanted: 01/06/2017 (Quantity not [employer] on file) 05/29/2018 [id number] / [id number] / [id number] Cement Bone Gm 40gr Smartset Gmv - Surgical Right: Knee DEPUY [id number] Bone ORTHO Implanted: 01/06/2017 (Quantity not Cement on file) 05/29/2018 [id number] / [id number] / [id number] Cement Bone Gm 40gr Smartset Gmv - Surgical Right: Knee DEPUY [id number] Bone ORTHO Implanted: 01/06/2017 (Quantity not Cement on file) Results Not on fileafter 03/05/2018 Insurance Type Payer Benefit Subscriber ID Effective Phone Address Plan / Dates Group Medicare MEDICARE MEDICARE xxxxxxxxxx 2015- JU[place], PART A AND Present [place] B HMO CIGNA CIGNA xxxxxxxxxxx 2001-P HMO/POS resent Advance Directives Patient has advance care planning documents, and code status on file. For more i nformation, please contact: Juan Restrepo [address] [place] [address] Date Inactivated Comments Code Status Date Activated 01/08/2017 6:17 PM Full Code 01/06/2017 8:07 PM Code Status decision reached by: Patient
--- OUTSIDE RECORDS SUMMARY | 2019-03-06 16:11 | XMS REPORT ---
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 58983199020 8 MG/ML Intravenous every 2 weeks Active 1 ml Results No Known Results Summary Purpose eClinicalWorks Submission
--- OUTSIDE RECORDS SUMMARY | 2019-03-06 16:11 | XMS REPORT ---
Author Author Teddy Horta Organization [employer] Address Unknown Phone Unavailable Care Team Providers Care Glue Mounter Operator Name Role Phone Teddy Horta CP [...]
--- OUTSIDE RECORDS SUMMARY | 2019-03-06 16:11 | XMS REPORT ---
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 Assessment 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 Problem 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 Medications Medication Code System Code Instructions Start Date End Date Status Dosage PredniSONE ND 72419425075 5 MG Orally Once a day Aug 24, 2018 Active 2- 4 tablets as needed Indomethacin ND 43166277666 25 MG Orally every morning January 06, 2019 Active 1 capsule with food or milk Multivitamin Men ND 54648306722 - Orally Active as directed Meloxicam ND 09499593943 7.5 MG Orally bid with food Jul 16, 2018 Active 1 tablet Colchicine ND 80484812728 0.6 MG Orally Once a day Sep 23, 2018 Active 1 tablet Indomethacin ND 75270680186 25 MG Orally Once a day Nov 11, 2018 Active 1 capsule with food or milk Krystexxa [facility] 00721790904 8 MG/ML Intravenous every 2 weeks Active 1 ml Acetaminophen ND 84297097048 650 MG Orally once a day Active 1 capsule Vital Signs Date/Time: February 24, 2019 BMI 28.51 Index Weight 187.5 lbs Height 68 in Temperature 98.6 F Cardiac Monitoring Heart Rate 63 /min Blood Pressure Diastolic 77 mm Hg Blood Pressure Systolic 125 mm Hg Results No Known Results Summary Purpose eClinicalWorks Submission
--- OUTSIDE RECORDS SUMMARY | 2019-03-06 16:11 | XMS REPORT ---
Author Author Teddy Horta Organization e[employer]Works Address Unknown Phone Unavailable Care Team Providers Care Assistant Operator Name Role Phone Teddy Horta CP [...]
--- OUTSIDE RECORDS SUMMARY | 2019-03-06 16:11 | XMS REPORT ---
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 Problem High risk medication use Z79.899 Active Assessment High risk medication use Z79.899 Active Assessment 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 Medications Medication Code System Code Instructions Start Date End Date Status Dosage Meloxicam ND 01993827207 7.5 MG Orally bid with food Jul 16, 2018 Active 1 tablet Krystexxa ND 94036430569 8 MG/ML Intravenous every 2 weeks Active 1 ml Acetaminophen ND 88060436087 650 MG Orally once a day Active 1 capsule Colchicine ND 04511551116 0.6 MG Orally Once a day Sep 23, 2018 Active 1 tablet PredniSONE ND 51197584805 5 MG Orally Once a day Aug 24, 2018 Active 2- 4 tablets as needed Indomethacin ND 76237225071 25 MG Orally Once a day Nov 11, 2018 Active 1 capsule with food or milk Multivitamin Men ND 97861361741 - Orally Active as directed Vital Signs Date/Time: December 15, 2018 BMI 29.62 Index Weight 194.8 lbs Height 68 in Temperature 97.5 F Cardiac Monitoring Heart Rate 80 /min Blood Pressure Diastolic 81 mm Hg Blood Pressure Systolic 142 mm Hg Results No Known Results Summary Purpose eClinicalWorks Submission
--- OUTSIDE RECORDS SUMMARY | 2019-03-06 16:11 | XMS REPORT ---
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 Medications Medication Code System Code Instructions Start Date End Date Status Dosage Colchicine ND 62394380686 0.6 MG Orally Once a day Sep 23, 2018 Active 1 tablet Multivitamin Men ND 26318933017 - Orally Active as directed PredniSONE ND 24960119306 5 MG Orally Once a day Aug 24, 2018 Active 2- 4 tablets as needed Indomethacin ND 95121828782 25 MG Orally Once a day Nov 11, 2018 Active 1 capsule with food or milk Krystexxa ND 43502430713 8 MG/ML Intravenous every 2 weeks Active 1 ml Acetaminophen ND 57523257579 650 MG Orally once a day Active 1 capsule Meloxicam ND 24736628992 7.5 MG Orally bid with food Jul 16, 2018 Active 1 tablet Vital Signs Date/Time: Nov 11, 2018 BMI 30 Index Weight 198.0 lbs Height 68 in Temperature 97.9 F Cardiac Monitoring Heart Rate 76 /min Blood Pressure Diastolic 62 mm Hg Blood Pressure Systolic 110 mm Hg Results No Known Results Summary Purpose eClinicalWorks Submission
--- OUTSIDE RECORDS SUMMARY | 2019-03-06 16:11 | XMS REPORT | Continuity of Care Document ---
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 Problem 02/27/2019 Micky Horta Encounter for long-term drug use Active Diagnosis 02/25/2018 Micky Horta High risk medication use Active Diagnosis 02/27/2019 Micky Horta CRP elevated Active Problem 02/27/2019 Micky Horta Medications Medication Details Route Status Patient Instructions Ordering Provider Order Date Source Indomethacin 1 capsule with food or milk Orally Active 25 MG Orally every morning Rashid 01/06/2019 Micky Horta Indomethacin 1 capsule with food or milk Orally Active 25 MG Orally Once a day Rashid 11/11/2018 Micky Horta Colchicine 1 tablet Orally Active 0.6 MG Orally Once a day Rashid 09/23/2018 Micky Horta Indomethacin 1 capsule with food or milk Orally Active 25 MG Orally every morning Rashid 09/22/2018 Micky Horta PredniSONE 2-4 tablets as needed Orally Active 5 MG Orally Once a day Rashid 08/24/2018 Micky Horta Indomethacin 1 capsule with food or milk Orally Active 25 MG Orally every morning Horta 07/19/2018 Micky Horta Meloxicam 1 tablet Orally Active 7.5 MG Orally bid with food Rashid 07/16/2018 Micky Horta Meloxicam 1 tablet Orally Active 7.5 MG Orally bid with food Horta 06/22/2018 Micky Horta Colchicine 1 tablet Orally Active 0.6 MG Orally Once a day Horta 06/22/2018 Micky Horta Celecoxib (Celebrex*) 100 Mg Capsule, 100 Mg Oral Daily Active 06/16/2018 [facility] Febuxostat (Uloric) 80 Mg Tablet, 80 Mg Oral Daily Active 06/16/2018 [facility] PredniSONE 2-4 tablets as needed Orally Active 5 MG Orally Once a day Horta 05/29/2018 Micky Horta PredniSONE 2-4 tablets as needed Orally Active 5 MG Orally Once a day Rashid 05/29/2018 Micky Alonsoer PredniSONE 1 tablet Orally Active 10 MG Orally as needed Rashid 05/28/2018 Micky Alonsoer Colchicine 1 tablet Orally Active 0.6 MG Orally Once a day Rashid 05/27/2018 Micky Alonsoer PredniSONE 2 tablets for flares Orally Active [...] Active 80 MG Orally Once a day Horta 02/17/2018 Micky Horta Celecoxib (Celebrex*) 100 Mg Capsule Daily Active [facility] Colchicine (Colcrys) 0.6 Mg Tablet Daily Active [facility] Febuxostat (Uloric) 80 Mg Tablet Daily Active [facility] Indomethacin 50 Mg Capsule Daily Active [facility] Prednisone 10 Mg Tab As Needed Active [facility] Acetaminophen With Codeine (Tylenol With Codeine #3 Tablet) 1 Each Tablet As Needed Active [facility] Colchicine (Colcrys) 0.6 Mg Tablet Daily Active [facility] Indomethacin 50 Mg Capsule Daily Active [facility] Levofloxacin (Levaquin) 500 Mg Tablet Daily Active [facility] Prednisone 10 Mg Tab As Needed Active [facility] Multivitamin Men as directed Orally Active - Orally Rashid Micky Horta Uloric 1 tablet Orally Active 80 MG Orally Once a day Rashid Micky Horta Acetaminophen 1 capsule Orally Active 650 MG Orally once a day Rashid Micky Horta PredniSONE 2 tablets for 4 daysm then 1 tablet as needed until flare resolves Orally Active 10 MG Orally as needed Rasihd Micky Horta Indomethacin 1 capsule with food or milk Orally Active 25 MG Orally every morning Rashid Micky Horta Colchicine 1 tablet Orally Active 0.6 MG Orally Once a day Rachid Horta Krystexxa 1 ml Intravenous Active 8 MG/ML Intravenous every 2 weeks Rachid Horta Indomethacin 1 capsule with food or milk Orally Active 50 MG Orally every morning Rachid Horta Allergies, Adverse Reactions, Alerts Substance Category Reaction Severity Reaction type Status Date Reported Comments Source Hydromorphone Unknown Propensity to adverse reactions Active 11/07/2018 [facility] Colchicine Adverse Reaction stomach upset Adverse Reaction Active 02/24/2019 Micky Horta Immunizations Immunization Date Given Site Status Last Updated Comments Source Results Order Name Results Value Reference Range Date Interpretation Comments Source Urine color determination YELLOW YELLOW 11/06/2018 [facility] Urine clarity SL CLOUDY CLEAR 11/06/2018 [facility] Specific gravity of Urine by Test strip 1.025 1.010 - 1.025 11/06/2018 [facility] Urine pH measurement by automated test strip 6 5 - 7 11/06/2018 [facility] Urine leukocyte esterase detection by dipstick NEGATIVE NEGATIVE 11/06/2018 [facility] Urine nitrite detection NEGATIVE NEGATIVE 11/06/2018 [facility] Urine protein measurement by test strip (mass/volume) NEGATIVE NEGATIVE 11/06/2018 [facility] Urine glucose detection NEGATIVE NEGATIVE 11/06/2018 [facility] Urine ketones detection by automated test strip NEGATIVE NEGATIVE 11/06/2018 [facility] Urine urobilinogen measurement by test strip (mass/volume) 0.2 0.2 - 1 11/06/2018 [facility] Urine total bilirubin measurement (mass/volume) NEGATIVE NEGATIVE 11/06/2018 [facility] Urine erythrocytes detection 1+ NEGATIVE 11/06/2018 [facility] Automated urine sediment leukocyte count by microscopy (number/high power field) NONE 0 - 5 11/06/2018 [facility] Erythrocytes detection in urine sediment by light microscopy 11-20 0 - 5 11/06/2018 [facility] Bacteria detection in urine sediment by light microscopy NONE NONE 11/06/2018 [facility] Epithelial cells detection in urine sediment by light microscopy RARE NONE 11/06/2018 [facility] Blood leukocytes automated count (number/volume) 6.89 4.8 - 10.8 11/06/2018 [facility] Blood erythrocytes automated count (number/volume) 4.48 4.3 - 5.7 11/06/2018 [facility] Blood hemoglobin measurement (moles/volume) 14.7 14.0 - 18.0 11/06/2018 [facility] Automated blood hematocrit (volume fraction) 44.3 38.2 - 49.6 11/06/2018 [facility] Automated erythrocyte mean corpuscular volume 98.9 81 - 99 11/06/2018 [facility] Automated erythrocyte mean corpuscular hemoglobin (mass per erythrocyte) 32.8 28 - 32 11/06/2018 [facility] Automated erythrocyte mean corpuscular hemoglobin concentration measurement (mass/volume) 33.2 31 - 35 11/06/2018 [facility] RDW BldCo-Rto 13.7 11.7 - 14.4 11/06/2018 [facility] Automated blood platelet count (count/volume) 220 140 - 360 11/06/2018 [facility] Automated blood segmented neutrophil count as percentage of total leukocytes 72.1 38.7 - 80.0 11/06/2018 [facility] Automated blood lymphocyte count as percentage ot total leukocytes 14.9 18.0 - 39.1 11/06/2018 [facility] Automated blood monocyte count as percentage of total leukocytes 9.0 4.4 - 11.3 11/06/2018 [facility] Automated blood eosinophil count as percentage of total leukocytes 3.0 0.0 - 6.0 11/06/2018 [facility] Automated blood basophil count as percentage of total leukocytes 0.6 0.0 - 1.0 11/06/2018 [facility] IM GRANULOCYTES % 0.4 0.0 - 1.0 11/06/2018 [facility] Automated blood neutrophil count 5.0 2.1 - 6.9 11/06/2018 [facility] Blood lymphocytes count (number/volume) 1.0 1.0 - 3.2 11/06/2018 [facility] Blood monocytes automated count (number/volume) 0.6 0.2 - 0.8 11/06/2018 [facility] Automated blood eosinophil count 0.2 0.0 - 0.4 11/06/2018 [facility] Automated blood basophil count (count/volume) 0.0 0.0 - 0.1 11/06/2018 [facility] Absolute Immature Granulocyte (auto 0.03 0 - 0.1 11/06/2018 [facility] Prothrombin time (PT) in platelet poor plasma by coagulation assay 12.7 11.9 - 14.5 11/06/2018 [facility] INR in Platelet poor plasma by Coagulation assay 0.87 11/06/2018 [facility] Activated partial thromboplastin time (aPTT) in platelet poor plasma bycoagulation assay 26.7 23.8 - 35.5 11/06/2018 [facility] Serum or plasma sodium measurement (moles/volume) 140 136 - 145 11/06/2018 [facility] Serum or plasma potassium measurement (moles/volume) 4.1 3.5 - 5.1 11/06/2018 [facility] Serum or plasma chloride measurement (moles/volume) 102 98 - 107 11/06/2018 [facility] Serum or plasma carbon dioxide, total measurement (moles/volume) 28 22 - 29 11/06/2018 [facility] Serum or plasma anion gap 14.1 8 - 16 11/06/2018 [facility] Serum or plasma urea nitrogen measurement (mass/volume) 23 7 - 26 11/06/2018 [facility] Serum or plasma creatinine measurement (mass/volume) 1.28 0.72 - 1.25 11/06/2018 [facility] Serum or plasma urea nitrogen/creatinine mass ratio 18 6 - 25 11/06/2018 [facility] Estimated glomerular filtration rate (GFR) determination 56 60 11/06/2018 [facility] Glucose measurement 109 74 - 118 11/06/2018 [facility] Serum or plasma calcium measurement (mass/volume) 8.8 8.4 - 10.2 11/06/2018 [facility] Serum or plasma magnesium measurement (mass/volume) 2.2 1.3 - 2.1 11/06/2018 [facility] Serum or plasma total bilirubin measurement (mass/volume) 0.5 0.2 - 1.2 11/06/2018 [facility] Aspartate Amino Transf (AST/SGOT) 25 5 - 34 11/06/2018 [facility] Serum or plasma alanine aminotransferase measurement (enzymatic activity/volume) 27 0 - 55 11/06/2018 [facility] Serum or plasma protein measurement (mass/volume) 6.8 6.5 - 8.1 11/06/2018 [facility] Serum or plasma albumin measurement (mass/volume) 3.7 3.5 - 5.0 11/06/2018 [facility] Plasma globulin measurement (mass/volume) 3.1 2.3 - 3.5 11/06/2018 [facility] Serum or plasma albumin/globulin mass ratio 1.2 0.8 - 2.0 11/06/2018 [facility] Serum or plasma alkaline phosphatase measurement (enzymatic activity/volume) 70 40 - 150 11/06/2018 [facility] Serum or plasma creatine kinase measurement (enzymatic activity/volume) 225 30 - 200 11/06/2018 [facility] Serum or plasma creatine kinase MB measurement (mass/volume) 4.30 0 - 5.0 11/06/2018 [facility] Troponin I measurement by highly sensitive enzyme immunoassay 0.002 0 - 0.300 11/06/2018 [facility] Automated blood basophil count (count/volume) Automated blood basophil count (count/volume) 0.0 0.0 - 0.1 06/08/2018 [facility] Automated blood basophil count as percentage of total leukocytes Automated blood basophil count as percentage of total leukocytes 0.3 0.0 - 1.0 06/08/2018 [facility] Automated blood eosinophil count Automated blood eosinophil count 0.2 0.0 - 0.4 06/08/2018 [facility] Automated blood eosinophil count as percentage of total leukocytes Automated blood eosinophil count as percentage of total leukocytes 2.2 0.0 - 6.0 06/08/2018 [facility] Automated blood hematocrit (volume fraction) Automated blood hematocrit (volume fraction) 35.3 38.2 - 49.6 06/08/2018 [facility] Automated blood lymphocyte count as percentage ot total leukocytes Automated blood lymphocyte count as percentage ot total leukocytes 14.8 18.0 - 39.1 06/08/2018 [facility] Automated blood monocyte count as percentage of total leukocytes Automated blood monocyte count as percentage of total leukocytes 12.9 4.4 - 11.3 06/08/2018 [facility] Automated blood neutrophil count Automated blood neutrophil count 5.3 2.1 - 6.9 06/08/2018 [facility] Automated blood platelet count (count/volume) Automated blood platelet count (count/volume) 172 140 - 360 06/08/2018 [facility] Automated blood segmented neutrophil count as percentage of total leukocytes Automated blood segmented neutrophil count as percentage of total leukocytes 69.3 38.7 - 80.0 06/08/2018 [facility] Automated erythrocyte mean corpuscular hemoglobin (mass per erythrocyte) Automated erythrocyte mean corpuscular hemoglobin (mass per erythrocyte) 33.7 28 - 32 06/08/2018 [facility] Automated erythrocyte mean corpuscular hemoglobin concentration measurement (mass/volume) Automated erythrocyte mean corpuscular hemoglobin concentration measurement (mass/volume) 32.6 31 - 35 06/08/2018 [facility] Automated erythrocyte mean corpuscular volume Automated erythrocyte mean corpuscular volume 103.5 81 - 99 06/08/2018 [facility] Blood erythrocytes automated count (number/volume) Blood erythrocytes automated count (number/volume) 3.41 4.3 - 5.7 06/08/2018 [facility] Blood hemoglobin measurement (moles/volume) Blood hemoglobin measurement (moles/volume) 11.5 14.0 - 18.0 06/08/2018 [facility] Blood leukocytes automated count (number/volume) Blood leukocytes automated count (number/volume) 7.69 4.8 - 10.8 06/08/2018 [facility] Blood lymphocytes count (number/volume) Blood lymphocytes count (number/volume) 1.1 1.0 - 3.2 06/08/2018 [facility] Blood monocytes automated count (number/volume) Blood monocytes automated count (number/volume) 1.0 0.2 - 0.8 06/08/2018 [facility] Estimated glomerular filtration rate (GFR) determination Estimated glomerular filtration rate (GFR) determination null 60 06/08/2018 [facility] Glucose measurement Glucose measurement 102 74 - 118 06/08/2018 [facility] Serum or plasma anion gap Serum or plasma anion gap 10.4 8 - 16 06/08/2018 [facility] Serum or plasma calcium measurement (mass/volume) Serum or plasma calcium measurement (mass/volume) 8.2 8.4 - 10.2 06/08/2018 [facility] Serum or plasma carbon dioxide, total measurement (moles/volume) Serum or plasma carbon dioxide, total measurement (moles/volume) 24 22 - 29 06/08/2018 [facility] Serum or plasma chloride measurement (moles/volume) Serum or plasma chloride measurement (moles/volume) 111 98 - 107 06/08/2018 [facility] Serum or plasma creatinine measurement (mass/volume) Serum or plasma creatinine measurement (mass/volume) 0.98 0.72 - 1.25 06/08/2018 [facility] Serum or plasma potassium measurement (moles/volume) Serum or plasma potassium measurement (moles/volume) 4.4 3.5 - 5.1 06/08/2018 [facility] Serum or plasma sodium measurement (moles/volume) Serum or plasma sodium measurement (moles/volume) 141 136 - 145 06/08/2018 [facility] Serum or plasma urea nitrogen measurement (mass/volume) Serum or plasma urea nitrogen measurement (mass/volume) 21 7 - 26 06/08/2018 [facility] Serum or plasma urea nitrogen/creatinine mass ratio Serum or plasma urea nitrogen/creatinine mass ratio 21 6 - 25 06/08/2018 [facility] Red Cell Distribution Width 14.1 11.7 - 14.4 06/08/2018 [facility] IM GRANULOCYTES % 0.5 0.0 - 1.0 06/08/2018 [facility] Absolute Immature Granulocyte (auto 0.04 0 - 0.1 06/08/2018 [facility] Plasma globulin measurement (mass/volume) Plasma globulin measurement (mass/volume) 3.1 2.3 - 3.5 06/07/2018 [facility] Serum or plasma alanine aminotransferase measurement (enzymatic activity/volume) Serum or plasma alanine aminotransferase measurement (enzymatic activity/volume) 19 0 - 55 06/07/2018 [facility] Serum or plasma albumin measurement (mass/volume) Serum or plasma albumin measurement (mass/volume) 3.4 3.5 - 5.0 06/07/2018 [facility] Serum or plasma albumin/globulin mass ratio Serum or plasma albumin/globulin mass ratio 1.1 0.8 - 2.0 06/07/2018 [facility] Serum or plasma alkaline phosphatase measurement (enzymatic activity/volume) Serum or plasma alkaline phosphatase measurement (enzymatic activity/volume) 62 40 - 150 06/07/2018 [facility] Serum or plasma protein measurement (mass/volume) Serum or plasma protein measurement (mass/volume) 6.5 6.5 - 8.1 06/07/2018 [facility] Serum or plasma total bilirubin measurement (mass/volume) Serum or plasma total bilirubin measurement (mass/volume) 0.9 0.2 - 1.2 06/07/2018 [facility] Aspartate Amino Transf (AST/SGOT) 17 5 - 34 06/07/2018 [facility] Automated urine sediment leukocyte count by microscopy (number/high power field) Automated urine sediment leukocyte count by microscopy (number/high power field) NONE 0 - 5 06/07/2018 [facility] Bacteria detection in urine sediment by light microscopy Bacteria detection in urine sediment by light microscopy NONE NONE 06/07/2018 [facility] Epithelial cells detection in urine sediment by light microscopy Epithelial cells detection in urine sediment by light microscopy NONE NONE 06/07/2018 [facility] Erythrocytes detection in urine sediment by light microscopy Erythrocytes detection in urine sediment by light microscopy null 0 - 5 06/07/2018 [facility] Specific gravity of Urine by Test strip Specific gravity of Urine by Test strip 1.025 1.010 - 1.025 06/07/2018 [facility] Urine clarity Urine clarity CLEAR CLEAR 06/07/2018 [facility] Urine color determination Urine color determination YELLOW YELLOW 06/07/2018 [facility] Urine erythrocytes detection Urine erythrocytes detection NEGATIVE NEGATIVE 06/07/2018 [facility] Urine glucose detection Urine glucose detection NEGATIVE NEGATIVE 06/07/2018 [facility] Urine ketones detection by automated test strip Urine ketones detection by automated test strip NEGATIVE NEGATIVE 06/07/2018 [facility] Urine leukocyte esterase detection by dipstick Urine leukocyte esterase detection by dipstick NEGATIVE NEGATIVE 06/07/2018 [facility] Urine nitrite detection Urine nitrite detection NEGATIVE NEGATIVE 06/07/2018 [facility] Urine pH measurement by automated test strip Urine pH measurement by automated test strip 6 5 - 7 06/07/2018 [facility] Urine protein measurement by test strip (mass/volume) Urine protein measurement by test strip (mass/volume) NEGATIVE NEGATIVE 06/07/2018 [facility] Urine total bilirubin measurement (mass/volume) Urine total bilirubin measurement (mass/volume) NEGATIVE NEGATIVE 06/07/2018 [facility] Urine urobilinogen measurement by test strip (mass/volume) Urine urobilinogen measurement by test strip (mass/volume) 0.2 0.2 - 1 06/07/2018 [facility] Vital Signs Vital Sign Value Date Comments Source Weight 187.5 02/24/2019 Micky Horta Height 68 02/24/2019 Micky Horta Temperature Oral (F) 98.6 F 02/24/2019 Micky Horta Heart Rate 63 02/24/2019 Micky Horta Diastolic (mm Hg) 77 02/24/2019 Micky Horta Systolic (mm Hg) 125 02/24/2019 Micky Horta Weight 195.8 12/29/2018 Micky Horta Height 68 12/29/2018 Micky Horta Temperature Oral (F) 97.0 F 12/29/2018 Micky Horta Heart Rate 60 12/29/2018 Micky Horta Diastolic (mm Hg) 79 12/29/2018 Micky Horta Systolic (mm Hg) 137 12/29/2018 Micky Horta Weight 194.8 12/15/2018 Micky Horta Height 68 12/15/2018 Micky Horta Temperature Oral (F) 97.5 F 12/15/2018 Mciky Horta Heart Rate 80 12/15/2018 Micky Horta Diastolic (mm Hg) 81 12/15/2018 Micky Horta Systolic (mm Hg) 142 12/15/2018 Micky Horta Weight 198.0 11/11/2018 Micky Horta Height 68 11/11/2018 Micky Horta Temperature Oral (F) 97.9 F 11/11/2018 Micky Horta Heart Rate 76 11/11/2018 Micky Horta Diastolic (mm Hg) 62 11/11/2018 Micky Horta Systolic (mm Hg) 110 11/11/2018 Micky Horta Weight 186.4 06/24/2018 Micky Horta Height 68 [...] DC Date Status Source Discharged Inpatient (obs) [id number] ZOE PEARSON MD 06/07/2018 06/08/2018 [facility] [id number] LISSET RILEY MD 06/17/2018 [facility] Departed Emergency Room [id number] NOA BARAHONA MD 11/06/2018 11/06/2018 [facility] Departed Emergency Room [id number] YVROSE FRANKS MD 11/07/2018 11/07/2018 [facility] Procedures Procedure Code Date Perfomer Comments Source CT of abdomen and pelvis without contrast [id number] 11/06/2018 JUN [facility] FRAGMENTING OF KIDNEY STONE [id number] 06/17/2018 [facility] X-ray of chest, two views [id number] 06/16/2018 [facility] Cystoscopy with retrograde pyelography [id number] 06/08/[address] [facility] [address] of abdomen and pelvis without contrast [id number] 06/07/2018 [facility] CYSTOSCOPY AND TREATMENT [id number] 06/07/2018 [facility]
--- OUTSIDE RECORDS SUMMARY | 2019-03-06 16:11 | XMS REPORT ---
Author Author Juliette Gill Organization [employer] Address Unknown Phone Unavailable Care Team Providers Care Employment Instructional Associate Name Role Phone Juliette Gill CP Unavailable [...] Start Date End Date Status Dosage Indomethacin ND 75053210653 25 MG Orally Once a day Nov 11, 2018 Active 1 capsule with food or milk Colchicine ND 00396631575 0.6 MG Orally Once a day Sep 23, 2018 Active 1 tablet Multivitamin Men ND 18240245837 - Orally Active as directed PredniSONE ND 44321605409 5 MG Orally Once a day Aug 24, 2018 Active 2- 4 tablets as needed Acetaminophen ND 90162780971 650 MG Orally once a day Active 1 capsule Krystexxa [facility] 71834534817 8 MG/ML Intravenous every 2 weeks Active 1 ml Meloxicam ND 55151179033 7.5 MG Orally bid with food Jul 16, 2018 Active 1 tablet Vital Signs Date/Time: December 29, 2018 BMI 29.77 Index Weight 195.8 lbs Height 68 in Temperature 97.0 F Cardiac Monitoring Heart Rate 60 /min Blood Pressure Diastolic 79 mm Hg Blood Pressure Systolic 137 mm Hg Results No Known Results Summary Purpose [employer] Submission
--- OUTSIDE RECORDS SUMMARY | 2019-03-06 16:11 | XMS REPORT ---
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
--- OUTSIDE RECORDS SUMMARY | 2019-03-06 16:11 | XMS REPORT ---
Author Author Teddy Horta Organization [employer] Address Unknown Phone Unavailable Care Team Providers Care Analytical Manager Name Role Phone Teddy Horta CP Unavailable [...]
--- OUTSIDE RECORDS SUMMARY | 2019-03-06 16:11 | XMS REPORT ---
Author Author Teddy Horta Organization [employer] Address Unknown Phone Unavailable Care Team Providers Care Fabric Stretcher Name Role Phone Teddy Horta CP Unavailable [...]
[2019-03-06] MEDS ORDERED: SODIUM CHLORIDE 0.9% 1000ML 1,000 ML IV STA (16:25)
[2019-03-06] MEDS ORDERED: KETOROLAC TROMETHAMINE 30 MG/ML VIAL IV NR (16:30)
[2019-03-06 16:45] LABS: BASOPHILS % 0.4 % (0.0-1.0); EOSINOPHILS # (AUTO) 0.2 (0.0-0.4); EOSINOPHILS % 1.9 % (0.0-6.0); HEMATOCRIT 41.5 % (38.2-49.6); LYMPHOCYTES # (AUTO) 1.6 (1.0-3.2); LYMPHOCYTES % 15.7 % (18.0-39.1); MEAN CORPUSCULAR HGB CONC 33.7 g/dL (31-35); MEAN CORPUSCULAR VOLUME 100.7 fL (81-99); MONOCYTES # (AUTO) 1.2 (0.2-0.8); MONOCYTES % 11.6 % (4.4-11.3); NEUTROPHILS # (AUTO) 7.2 (2.1-6.9); NEUTROPHILS % 69.8 % (38.7-80.0); PLATELET COUNT 206 x10e3/uL (140-360); RED BLOOD COUNT 4.12 x10e6/uL (4.3-5.7); RED CELL DISTRIBUTION WIDTH 12.8 % (11.7-14.4)
[2019-03-06 17:01] LABS: ALBUMIN 3.8 g/dL (3.5-5.0); ALBUMIN/GLOBULIN RATIO 1.2 (0.8-2.0); ANION GAP 11.9 mmol/L (8-16); CALCIUM 9.2 mg/dL (8.4-10.2); CREATININE, SERUM 1.26 mg/dL (0.72-1.25); POTASSIUM 3.9 mmol/L (3.5-5.1)
[2019-03-06 17:08] LABS: BILIRUBIN,URINE NEGATIVE (NEGATIVE); COLOR,URINE YELLOW (YELLOW); KETONES,URINE NEGATIVE (NEGATIVE); LEUKOCYTE ESTERASE ,URINE NEGATIVE (NEGATIVE); NITRITE,URINE NEGATIVE (NEGATIVE); PROTEIN,URINE DIPSTICK NEGATIVE (NEGATIVE); URINE UROBILINOGEN 0.2 mg/dL (0.2 - 1)
[2019-03-06 17:10] LABS: CLARITY,URINE SL CLOUDY (CLEAR)
[2019-03-06 17:12] LABS: BACTERIA,URINE FEW /HPF; EPITHELIAL CELLS,URINE FEW /LPF; WBC,URINE (MAN) 0-5 /HPF (0-5)
--- NOTE | 2019-03-06 18:17 | Diagnostic Imaging Report ---
EXAM: CT Abdomen and Pelvis WITHOUT contrast INDICATION: ^STONE PROTOCOL ^[id number] ^1700 ^Y COMPARISON: CT abdomen and pelvis April 05, 2019 and 06/07/2018 TECHNIQUE: Abdomen and pelvis were scanned utilizing a multidetector helical scanner from the lung base to the pubic symphysis without administration of IV contrast. Absence of intravenous contrast decreases sensitivity for detection of focal lesions and vascular pathology. Coronal and sagittal reformations were obtained. Routine protocol was performed. IV CONTRAST: None. ORAL CONTRAST: Water RADIATION DOSE: Total DLP: 437.6 mGy*cm Estimated effective dose: (DLP x 0.015 x size factor) mSv COMPLICATIONS: None FINDINGS: LINES and TUBES: None. LOWER THORAX: Unremarkable HEPATOBILIARY: No focal hepatic lesions. No biliary ductal dilation. GALLBLADDER: No radio-opaque stones or sludge. No wall thickening. SPLEEN: No splenomegaly. PANCREAS: No focal masses or ductal dilatation. ADRENALS: No adrenal nodules KIDNEYS/URETERS: No hydronephrosis on the right. No cystic or solid mass lesions. Stable 2 nonobstructing right renal stones measuring up to 3 mm. There are 3 calcified stones in the left kidney, measuring up to 5 mm, previously 4 suggestive of an additional passing stone. Persistent mild left hydroureteronephrosis with mild inflammatory changes of the left ureter. No calcified stones in the right ureter. GI TRACT: No abnormal distention, wall thickening, or evidence of bowel obstruction. Moderate distention of the stomach. Appendix is normal. PELVIC ORGANS/BLADDER: Small stone in the urinary bladder is unchanged. LYMPH NODES: No lymphadenopathy. VESSELS: Unremarkable. PERITONEUM / RETROPERITONEUM: No free air or fluid. Stable fat stranding in the mesenteric fat which may represent chronic adenitis. BONES: No acute radiographic abnormality. L5 pars defects with grade 1 anterolisthesis of L5 on S1. Moderate degenerative changes of the lumbar spine. SOFT TISSUES: Unremarkable. IMPRESSION: 1. Stable nonobstructing right nephrolithiasis. 2. Decreased burden stone in the left kidney suggestive of additional passing stone. Stable mild left hydroureteronephrosis. 3. Unchanged small stone in the urinary bladder. Signed by: Dr. Bessy Norton M.D. on 03/06/2019 6:14 PM
[2019-03-06 18:29] VITALS: BP 129/81
== END 2019-03-06 18:30 | disposition home or self-care (01) ==
LOC: ER 16:07
DX: M54.5 Low back pain (principal); N20.0 Calculus of kidney; M10.9 Gout, unspecified
CPT/HCPCS: 36415; 74176; 80053; 81001; 85025; 96374; 99284; J1885; J7030

== ENCOUNTER 2022-10-21 08:49 | Emergency (ER) | payer MEDICARE, OTHER ==
[~2022-10-21] VITALS: Ht 175.3 cm; Wt 91.6 kg
[2022-10-21] MEDS ORDERED: ONDANSETRON HCL INJ 2MG/ML 2ML 2 MG/ML VIAL IV ONE (09:14)
[2022-10-21] MEDS ORDERED: SODIUM CHLORIDE 0.9% 1000ML 1,000 ML IV ONE (09:14)
[2022-10-21] MEDS ORDERED: Morphine 2mg Syringe 2 MG/ML SYR IV ONE (09:14)
[2022-10-21] MEDS ORDERED: KETOROLAC TROMETHAMINE 30 MG/ML VIAL IV ONE (09:14)
[2022-10-21 09:28] LABS: BASOPHILS % 0.6 % (0.0-1.0); EOSINOPHILS # (AUTO) 0.2 (0.0-0.4); EOSINOPHILS % 2.2 % (0.0-6.0); HEMATOCRIT 42.9 % (38.2-49.6); LYMPHOCYTES # (AUTO) 1.5 (1.0-3.2); LYMPHOCYTES % 22.8 % (18.0-39.1); MEAN CORPUSCULAR HEMOGLOBIN 33.6 pg (28-32); MEAN CORPUSCULAR HGB CONC 32.6 g/dL (31-35); MEAN CORPUSCULAR VOLUME 102.9 fL (81-99); MONOCYTES # (AUTO) 0.7 (0.2-0.8); MONOCYTES % 10.1 % (4.4-11.3); NEUTROPHILS # (AUTO) 4.3 (2.1-6.9); PLATELET COUNT 245 x10e3/uL (140-360); RED BLOOD COUNT 4.17 x10e6/uL (4.3-5.7); RED CELL DISTRIBUTION WIDTH 14.2 % (11.7-14.4)
[2022-10-21] MEDS ORDERED: KETOROLAC TROMETHAMINE 30 MG/ML VIAL ONE (09:36)
[2022-10-21 09:58] LABS: ALBUMIN 3.7 g/dL (3.5-5.0); ALBUMIN/GLOBULIN RATIO 0.9 (0.8-2.0); ANION GAP 14.9 mmol/L (8-16); CALCIUM 8.6 mg/dL (8.4-10.2); CREATININE, SERUM 0.99 mg/dL (0.72-1.25); POTASSIUM 5.9 mmol/L (3.5-5.1)
[2022-10-21 10:31] LABS: BACTERIA,URINE MODERATE /HPF; CLARITY,URINE CLEAR (CLEAR); COLOR,URINE YELLOW (YELLOW); EPITHELIAL CELLS,URINE FEW /LPF; KETONES,URINE NEGATIVE (NEGATIVE); LEUKOCYTE ESTERASE ,URINE NEGATIVE (NEGATIVE); NITRITE,URINE NEGATIVE (NEGATIVE); PROTEIN,URINE DIPSTICK NEGATIVE (NEGATIVE); RBC,URINE 0-5 /HPF (0-5); URINE UROBILINOGEN 0.2 mg/dL (0.2 - 1); WBC,URINE (MAN) 0-5 /HPF (0-5)
[2022-10-21] MEDS ORDERED: ULTRAM 50MG50 MG PO (11:26)
[2022-10-21 11:53] VITALS: BP 135/98
== END 2022-10-21 11:53 | disposition home or self-care (01) ==
LOC: ER 08:55
DX: R10.31 Right lower quadrant pain (principal); N13.2 Hydronephrosis with renal and ureteral calculous obstruction; K65.4 Sclerosing mesenteritis; M10.9 Gout, unspecified; Z96.653 Presence of artificial knee joint, bilateral; Z96.612 Presence of left artificial shoulder joint; Z20.822 Contact with and (suspected) exposure to COVID-19
CPT/HCPCS: 36415; 74176; 80053; 81001; 85025; 87086; 99284; J1885; J2270; J2405; J7030; U0002